=== PATIENT | female | born 1960 | race Caucasian/White ===

== ENCOUNTER → 2023-06-25 09:50 | Outpatient (BNVA) | payer OTHER, SELFPAY | PROVIDERS: Family Provider Family Medicine; PCP Nurse Practitioner Family; Visit Provider Nurse Practitioner | DX: R30.0 Dysuria (principal); R39.9 Unspecified symptoms and signs involving the genitourinary system; N39.0 Urinary tract infection, site not specified; G43.909 Migraine, unspecified, not intractable, without status migrainosus; R53.83 Other fatigue; M25.50 Pain in unspecified joint | CPT/HCPCS: 80053; 81000; 84443; 85025; 85651; 86038; 86140; 86431; 87077; 87086; 87184 ==

== ENCOUNTER → 2023-07-10 09:49 | Outpatient (BNVA) | payer OTHER, SELFPAY | PROVIDERS: Family Provider Family Medicine; PCP Nurse Practitioner; Visit Provider Nurse Practitioner | DX: Z23 Encounter for immunization (principal); N12 Tubulo-interstitial nephritis, not specified as acute or chronic; R76.8 Other specified abnormal immunological findings in serum; R21 Rash and other nonspecific skin eruption | CPT/HCPCS: 81000; 87077; 87086; 87184 ==

== ENCOUNTER → 2023-07-26 15:05 | Outpatient (BNVA) | payer OTHER, SELFPAY | PROVIDERS: Family Provider Family Medicine; PCP Nurse Practitioner; Visit Provider Nurse Practitioner | DX: N39.0 Urinary tract infection, site not specified (principal) | CPT/HCPCS: 81000; 87077; 87086; 87184 ==

== ENCOUNTER 2023-08-02 13:29 | Outpatient (CLI) | payer OTHER, SELFPAY ==
--- NOTE | 2023-08-02 13:30 | MM_ITS ---
WS: [id number] BILATERAL SCREENING DIGITAL TOMOSYNTHESIS MAMMOGRAM WITH CAD HISTORY: Z12.39 - Encounter for other screening for malignant neop... COMPARISON: 11/28/2017 and 10/25/2017 Bilateral CC and MLO views with tomosynthesis and synthetic mammography submitted. Computer aided det ection analyzed. Breast composition: There are scattered areas of fibroglandular density. No suspicious masses, microc alcifications or architectural distortion. Lobulated 5 mm mass with a central calcification in the an terior inferior LEFT breast close to the skin surface. This is probably a skin lesion. There are larry gn calcifications. IMPRESSION: MM/[place] [id number] BI-RADS: 2-Benign FOLLOW UP: 1 Year Follow-up
== END 2023-08-02 13:30 | disposition home or self-care (01) ==
LOC: MOBLMAM 13:37
PROVIDERS: PCP Nurse Practitioner; Visit Provider Nurse Practitioner
DX: Z12.31 Encounter for screening mammogram for malignant neoplasm of breast (principal)
CPT/HCPCS: 77063; 77067

== ENCOUNTER → 2023-08-10 13:39 | Outpatient (BNVA) | payer OTHER, SELFPAY | PROVIDERS: PCP Nurse Practitioner; Visit Provider Nurse Practitioner | DX: N39.0 Urinary tract infection, site not specified (principal) | CPT/HCPCS: 81000; 87086 ==

== ENCOUNTER → 2023-08-14 08:51 | Outpatient (BNVA) | payer OTHER, SELFPAY | PROVIDERS: PCP Nurse Practitioner; Visit Provider Nurse Practitioner | DX: N39.0 Urinary tract infection, site not specified (principal) | CPT/HCPCS: 87077; 87086; 87184 ==

== ENCOUNTER → 2023-08-22 10:12 | Outpatient (BNVA) | payer OTHER, SELFPAY | PROVIDERS: PCP Nurse Practitioner; Referring Provider Nurse Practitioner; Visit Provider Nurse Practitioner | DX: N39.0 Urinary tract infection, site not specified (principal) | CPT/HCPCS: 81000; 87086 ==

== ENCOUNTER → 2023-09-18 09:03 | Outpatient (BNVA) | payer OTHER, SELFPAY | PROVIDERS: PCP Nurse Practitioner; Visit Provider Nurse Practitioner | DX: N12 Tubulo-interstitial nephritis, not specified as acute or chronic; K13.0 Diseases of lips; R10.9 Unspecified abdominal pain; Z79.899 Other long term (current) drug therapy | CPT/HCPCS: 81000; 82306; 82607; 82746; 87086 ==

== ENCOUNTER 2023-09-24 14:11 | Emergency (ER) | payer OTHER, SELFPAY ==
[2023-09-24 14:21] VITALS: BP 136/78; PULSE 66; RESP 16; TEMP 36.7; O2SAT 93; BMI 39.4
[2023-09-24 14:30] LABS: Basophils % 0.3 %; Eosinophils # 0.1 10^3/uL (0.0-0.8); Eosinophils % 1.2 %; Hematocrit 39.7 % (36-47); Lymphocytes # 1.6 10^3/uL (0.8-4.8); Lymphocytes % 17.5 %; Mean Corpuscular HGB Conc 31.7 g/dL (30-55); Mean Corpuscular Hemoglobin 27.5 pg (27-33); Mean Corpuscular Volume 86.7 fl (85-98); Mean Platelet Volume 10.1 fL (7.4-10.4); Monocytes # 0.6 10^3/uL (0.2-0.9); Monocytes % 6.9 %; Neutrophils # 6.89 10^3/uL (1.8-7.7); Neutrophils % 73.8 %; Nucleated Red Blood Cells % 0 %; Platelet Count 282 10^3/cmm (157-399); Red Blood Count 4.58 10^6/uL (3.85-5.65); Red Cell Distribution Width 14.5 % (12.1-15.1); White Blood Count 9.33 10^3/uL (3.29-11.43)
[2023-09-24 14:46] LABS: Alanine Aminotransferase 26 U/L (0-33); Albumin Level 3.8 g/dL (3.5-5.2); Alkaline Phosphatase 72 U/L (35-105); Anion Gap 15.3 (5-19); Aspartate Amino Transferase 20 U/L (0-32); Blood Urea Nitrogen 18 mg/dL (8-23); Carbon Dioxide 26 mmol/L (22-29); Chloride 99 mmol/L (98-107); Globulin 3.5 g/dL (1.3-4.6); Glomerular Filtration Rate 84.5 mL/min (90-130); Glucose 104 mg/dL (65-115); Lipase 44 U/L (13-60); Osmolality Calculated 284 mOsm/kg (285-295); Potassium 4.3 mmol/L (3.5-5.1); Sodium 136 mmol/L (136-145); Total Bilirubin 0.3 mg/dL (0.15-1.2); Total Protein 7.3 g/dL (6.6-8.7)
--- NOTE | 2023-09-24 14:48 | ED_ITS ---
HPI - Abdominal Pain 2 General: Chief Complaint: Abdominal Pain Stated Complaint: abd pain Time Seen by Provider: 09/24/23 14:48 Source: patient Mode of arrival: ambulatory History of Present Illness: 63-year-old female who presents to the mergency room complaining of abdominal pain. She has a crampy-like pain says she feels like something is getting twisted out of her pulled out of her. Very nauseous but no vomiting no hematochezia melena hematemesis or coffee-ground emesis she had diarrhea with abdominal cramping intermittently for the last 3 months. She previously had a cholecystectomy denies any other surgeries. She recently was treated with Cipro for a presumed UTI. Culture done by that provider on October 16 showed mixed superficial deborah. MD elicited complaint: abdominal pain Onset (ago): day(s) Pain Consistency: constant Location: LLQ Severity: mild Quality: cramping Radiation: none Exacerbating factors: nothing Relieving factors: nothing Associated Symptoms: Reports nausea and poor appetite; Denies anorexia, belching, bloating, change in bowel habits, change in stool character, chills, coffee ground emesis, constipation, GI cramping, diarrhea, dyspepsia, dysuria, excessive flatus, fever(s), heartburn, hematochezia, hematuria, hematemesis, fecal incontinence, loose stools, melena, syncope and vomiting Review of Systems 2 Const: Denies: fever(s) or chills Card: Denies: chest pain or syncope Resp: Denies: dyspnea GI: Reports: abdominal pain and nausea; Denies: vomiting, hematemesis, coffee ground emesis, heartburn, diarrhea, constipation, bloating, GI cramping, belching, excessive flatus, fecal incontinence, change in bowel habits, change in stool character, hematochezia or melena : Denies: dysuria, urinary frequency, urinary urgency or hematuria Musc: Denies: neck pain or back pain Skin/Breast: Denies: rash PFSH ED 2 PFSH: Family History Sister Cancer lung Grandmother Cancer maternal - colon Heart disease maternal and paternal both from heart attack. Family/Other Cancer materanal aunts- brain and luekemia Stroke materanal uncle Father Chronic kidney disease (CKD) Heart disease Mother Heart disease Family history of Sjogren's disease Brother Heart disease Denies family history of Diabetes Thyroid disease Social History Smoking and tobacco/nicotine status: never used tobacco/nicotine Second hand smoke exposure: Yes Female Reproductive History: Para: 3 Spontaneous abortions: Yes Physical Exam 2 Const: GENERAL APPEARANCE: cooperative and comfortable O RIENTATION/CONSCIOUSNESS: Yes awake, Yes oriented to person, Yes oriented to place and Yes oriented to time HENMT: COMMON NORMALS: normocephalic, atraumatic and hearing grossly normal bilaterally HEAD & SCALP: normocephalic and atraumatic Resp: COMMON NORMALS: normal respiratory effort, No retractions, No use of accessory muscles and clear to auscultation bilaterally AUSCULTATION: clear to auscultation bilaterally Cardio: COMMON NORMALS: regular rate, regular rhythm and No murmurs present (Cardio) RATE: regular rate RHYTHM: regular rhythm GI: COMMON NORMALS: No hepatosplenomegaly present AUSCULTATION: Yes normoactive bowel sounds PALPATION: Yes Tenderness to palpation present (GI), No Guarding due to palpation present (GI) and Yes No hepatosplenomegaly present : COMMON NORMALS: Yes no CVA tenderness BLADDER/KIDNEY EXAM: Yes no CVA tenderness Back/Pelvis: COMMON NORMALS: no CVA tenderness Extremity: COMMON NORMALS: normal to inspection, capillary refill normal, no clubbing, cyanosis or edema, no calf tenderness and no pedal edema Neuro: SENSORIUM/ORIENTATION: Yes oriented to person, Yes oriented to place and Yes oriented to time Skin: COMMON NORMALS: no rashes or lesions noted GENERAL SKIN EXAM: no rashes or lesions noted Course 2 Vital Signs: Vital signs: Vital Signs Temperature 98.1 F 09/24/23 14:21 Pulse Rate 64 09/24/23 16:01 Respiratory Rate 16 09/24/23 16:01 Blood Pressure 128/86 09/24/23 15:06 Pulse Oximetry 96 09/24/23 16:01 Oxygen Delivery Me thod Room Air 09/24/23 16:01 MDM - Abdominal Pain Medical Decision Making Patient is completing a course of ciprofloxacin presumably for UTI however UA was negative culture was also negative now she has developed abdominal pain and cramping and diarrhea she is also been on doxycycline and Macrobid in the past and reviewing the chart looks like she has been given IM injections of ceftriaxone. She has had a couple of cultures that were positive. Suspect the patient may have interstitial cystitis she does have a urology appointment pending. At today's visit she has no sign of UTI despite her complaints of symptoms. Another consideration is she may have C. difficile she has had intermittent diarrhea especially given the amount of antibiotic she has been on recently she is at fairly good risk for this. Do not recommend any further antibiotics at this point. She definitely does not need to see urology and be further assessed. CT of her abdomen pelvis was negative lab work otherwise unremarkable will get stool sample for C. difficile PCR. Medical Records I reviewed the patient's medical records. Lab Data I reviewed the patient's lab results. 09/24/23 14:19 09/24/23 14:19 Labs/Radiology: Radiology Impressions Abdomen/Pelvis CT 09/24/23 16:01 IMPRESSION: No acute findings. Laboratory Results WBC 9.33 10^3/uL (3.29-11.43) 09/24/23 14:19 RBC 4.58 10^6/uL (3.85-5.65) 09/24/23 14:19 Hgb 12.60 g/dL (11.27-16.99) 09/24/23 14:19 Hct 39.7 % (36-47) 09/24/23 14:19 MCV 86.7 fl (85-98) 09/24/23 14:19 MCH 27.5 pg (27-33) 09/24/23 14:19 MCHC 31.7 g/dL (30-55) 09/24/23 14:19 RDW 14.5 % (12.1-15.1) 09/24/23 14:19 Plt Count 282 10^3/cmm (157-399) 09/24/23 14:19 MPV 10.1 fL (7.4-10.4) 09/24/23 14:19 Neut % (Auto) 73.8 % 09/24/23 14:19 Lymph % (Auto) 17.5 % 09/24/23 14:19 Lyman % (Auto) 6.9 % 09/24/23 14:19 Eos % (Auto) 1.2 % 09/24/23 14:19 Baso % (Auto) 0.3 % 09/24/23 14:19 Neut # (Auto) 6.89 10^3/uL (1.8-7.7) 09/24/23 14:19 Lymph # (Auto) 1.6 10^3/uL (0.8-4.8) 09/24/23 14:19 Lyman # (Auto) 0.6 10^3/uL (0.2-0.9) 09/24/23 14:19 Eos # (Auto) 0.1 10^3/uL (0.0-0.8) 09/24/23 14:19 Baso # (Auto) 0.0 10^3/uL (0.0-0.1) 09/24/23 14:19 Nucleated RBC % (auto) 0 % 09/24/23 14:19 Nucleated RBCs # 0.0 /100WBC 09/24/23 14:19 Sodium 136 mmol/L (136-145) 09/24/23 14:19 Potassium 4.3 mmol/L (3.5-5.1) 09/24/23 14:19 Chloride 99 mmol/L (98-107) 09/24/23 14:19 Carbon Dioxide 26 mmol/L (22-29) 09/24/23 14:19 Anion Gap 15.3 (5-19) 09/24/23 14:19 BUN 18 mg/dL (8-23) 09/24/23 14:19 Creatinine 0.7 mg/dL (0.5-0.9) 09/24/23 14:19 GFR Calculation 84.5 mL/min (90-130) L 09/24/23 14:19 Glucose 104 mg/dL (65-115) 09/24/23 14:19 Calculated Osmolality 284 mOsm/kg (285-295) L 09/24/23 14:19 Calcium 9.0 mg/dL (8.5-10.5) 09/24/23 14:19 Total Bilirubin 0.3 mg/dL (0.15-1.2) 09/24/23 14:19 AST 20 U/L (0-32) 09/24/23 14:19 ALT 26 U/L (0-33) 09/24/23 14:19 Alkaline Phosphatase 72 U/L (35-105) 09/24/23 14:19 Total Protein 7.3 g/dL (6.6-8.7) 09/24/23 14:19 Albumin 3.8 g/dL (3.5-5.2) 09/24/23 14:19 Globulin 3.5 g/dL (1.3-4.6) 09/24/23 14:19 Lipase 44 U/L (13-60) 09/24/23 14:19 Urine Color Yellow (Yellow) 09/24/23 15:26 Urine Appearance Clear (CLEAR) 09/24/23 15:26 Urine pH 6.5 (5-7) 09/24/23 15:26 Ur Specific [place] 1.005 (1.005-1.030) 09/24/23 15:26 Urine Protein Neg (Negative) 09/24/23 15:26 Urine Glucose (UA) Norm (Normal) 09/24/23 15:26 Urine Ketones Negative (Negative) 09/24/23 15:26 Urine Blood Neg (Negative) 09/24/23 15:26 Urine Nitrate Negative (Negative) 09/24/23 15:26 Urine Bilirubin Neg (Negative) 09/24/23 15:26 Urine Urobilinogen Norm mg/dL (Negative) 09/24/23 15:26 Ur Leukocyte Esterase Negative (Negative) 09/24/23 15:26 All radiology interpretation(s) finalized by discharge Discharge Plan Discharge Condition: Stable Prescriptions: No Action propranolol 40 mg tablet 40 mg PO BID citalopram 40 mg tablet 40 mg PO BEDTIME albuterol sulfate 90 mcg/actuation HFA aerosol inhaler 2 puff inhalation QID PRN (Reason: Shortness Of Breath) azelastine 137 mcg (0.1 %) aerosol,spray 2 spray intranasal BID PRN (Reason: unknown) Rx Instructions: administer into each nostril fluticasone propionate [Flonase Allergy Relief] 50 mcg/actuation spray,suspension 2 spray intranasal DAILY PRN (Reason: Allergy Symptoms) Rx Instructions: administer into each nostril omeprazole magnesium [Prilosec OTC] 20 mg tablet,delayed release (DR/EC) 20 mg PO DAILY naproxen sodium [Aleve] 220 mg capsule See Rx Instructions .ROUTE .COMPLEX Rx Instructions: 440mg po in the am and 660mg po bedtime ICaps AREDS 4,296 mcg-226 mg-90 mg capsule 1 cap PO BID glucosamine-chondroitin 750-600 mg tablet 1 tab PO DAILY melatonin 3 mg capsule 3 mg PO BEDTIME PRN (Reason: Sleep) Breztri Aerosphere 160-9-4.8 mcg/actuation HFA aerosol inhaler 2 inh inhalation BID ciprofloxacin HCl 500 mg tablet 500 mg PO BID Qty: 14 0RF Rx Instructions: for 7 days (rx filled 09/18/23) Allergy Relief (cetirizine) 10 mg tablet 10 mg PO BEDTIME ferrous sulfate 325 mg (65 mg iron) Tablet 325 mg PO BEDTIME Vitamin B-12 1,000 mcg Tablet 1,000 mcg PO BEDTIME Vitamin D3 25 mcg (1,000 unit) Tablet 25 mcg PO BEDTIME AZO Urinary Tract Defense 162-162.5 mg Tablet 1 tab PO BID Cranberry Gummies 1 tab PO BEDTIME Aimovig Autoinjector 140 mg/mL auto-injector 140 mg SUBCUT Q30D Referrals: Glo Brandon FNP [Primary Care Provider] - Coding Level of Care Code ED Hand Grinder for Miguel Clarke
[2023-09-24 15:06] VITALS: BP 128/86; PULSE 63; O2SAT 97
[2023-09-24 15:42] LABS: Add Urine Microscopic? NO; Charge for UA Resulting for Rev
[2023-09-24 15:50] LABS: Bilirubin Urine Neg (Negative); Blood Urine Neg (Negative); Glucose Urine UA Norm (Normal); Ketones Urine Negative (Negative); Leukocyte Esterase Urine Negative (Negative); Nitrate Urine Negative (Negative); Protein Urine Neg (Negative); Specific Gravity, Urine 1.005 (1.005-1.030); Urine Appearance Clear (CLEAR); Urine Color Yellow (Yellow); Urobilinogen Urine Norm (Negative); pH Urine 6.5 (5-7)
[2023-09-24 16:01] VITALS: PULSE 64; RESP 16; O2SAT 96
--- NOTE | 2023-09-24 16:01 | CTR_ITS ---
PROCEDURE INFORMATION: Exam: CT Abdomen And Pelvis Without Contrast Exam date and time: 09/24/2023 4:38 PM Age: 63 years old Clinical indication: Abdominal pain; Prior surgery; Surgery date: 6+ months; Surgery type: Josiane TECHNIQUE: Imaging protocol: Computed tomography of the abdomen and pelvis without contrast. Radiation optimization: All CT scans at this facility use at least one of these dose optimization techniques: automated exposure control; mA and/or kV adjustment per patient size (includes targeted exams where dose is matched to clinical indication); or iterative reconstruction. COMPARISON: No relevant prior studies available. RADIATION DOSE METRICS: Total DLP (mGy-cm): 1120.63 FINDINGS: Lungs: Lung bases are clear. No pleural effusion. Liver: Normal. No mass. Gallbladder and bile ducts: Normal. No calcified stones. No ductal dilation. Pancreas: Normal. No ductal dilation. Spleen: Normal. No splenomegaly. Adrenal glands: Normal. No mass. Kidneys and ureters: Normal. No hydronephrosis. Stomach and bowel: Unremarkable. No obstruction. No mucosal thickening. Appendix: No evidence of appendicitis. Intraperitoneal space: Unremarkable. No free air. No significant fluid collection. Vasculature: Unremarkable. No abdominal aortic aneurysm. Lymph nodes: Unremarkable. No enlarged lymph nodes. Urinary bladder: Unremarkable as visualized. Reproductive: Unremarkable as visualized. Bones/joints: Unremarkable. No acute fracture. Soft tissues: Unremarkable. CT/CT abdomen pelvis con [id number] IMPRESSION: No acute findings.
[2023-09-24 17:23] VITALS: BP 120/50; PULSE 64; RESP 16; TEMP 36.7; O2SAT 97
== END 2023-09-24 17:25 | disposition home or self-care (01) ==
PROVIDERS: Emergency Medicine; Emergency Provider Family Medicine; PCP Nurse Practitioner
DX: R10.32 Left lower quadrant pain (principal)
CPT/HCPCS: 36415; 74176; 80053; 81003; 83690; 85025; 99284

== ENCOUNTER → 2023-10-15 10:20 | Outpatient (BNVA) | payer OTHER, SELFPAY | PROVIDERS: PCP Nurse Practitioner; Visit Provider Obstetrics & Gynecology | DX: N81.4 Uterovaginal prolapse, unspecified (principal) | CPT/HCPCS: 76830 ==

== ENCOUNTER → 2024-01-03 11:21 | Outpatient (BNVA) | payer OTHER, SELFPAY | PROVIDERS: PCP Nurse Practitioner; Visit Provider Internal Medicine Rheumatology | DX: Z79.899 Other long term (current) drug therapy (principal); M45.6 Ankylosing spondylitis lumbar region; R76.8 Other specified abnormal immunological findings in serum; Z11.59 Encounter for screening for other viral diseases; Z11.1 Encounter for screening for respiratory tuberculosis; M47.897 Other spondylosis, lumbosacral region; M18.11 Unilateral primary osteoarthritis of first carpometacarpal joint, right hand; M47.892 Other spondylosis, cervical region | CPT/HCPCS: 36415; 72040; 72100; 73130; 73630; 80076; 82306; 82565; 85025; 85651; 86140; 86160; 86162; 86235; 86255; 86376; 86480; 86704; 86800; 86803; 86812; 87340 ==

== ENCOUNTER 2024-01-29 09:35 | Observation (INO) | payer OTHER, SELFPAY ==
--- NOTE | 2024-01-21 11:23 | P.ANESASSM_ITS ---
Pre-Anesthetic Assessment Height/Weight: Height 1.63 m Operation Date: 01/29/24 08:35 Proposed Procedures p Total Vaginal Hysterectomy 41265, 30438, 81241, N81.4, N39.46(Not Applicable) - Ever Gregg MD s Salpingo-Oophorectomy (Vaginal)(Bilateral) - Ever Gregg MD s Anterior Repair Anterior Colporrhaphy(Not Applicable) - Ever Gregg MD s Sling(Not Applicable) - Ever Gregg MD Familial anesthetic complications: None Was Beta Tanner taken within 24 hours: N/A Was Clonidine taken within 24 hours: N/A Social No alcohol and No tobacco Exam alert, oriented x 3, clear to auscultation bilaterally and regular rate & rhythm Airway Mallampati: Class II Dentition: other (no teeth) Pulmonary Asthma Musc/skel Rheumatoid Arthritis Anesthetic Plan ASA status: 2 Anesthesia: General Risk of > 500 ml blood loss (7ml/kg in children): No Medications/Allergies Home Medications Medication Instructions Recorded Confirmed Last Taken Type albuterol sulfate 90 mcg/actuation 2 puff inhalation QID PRN 06/23/23 01/21/24 01/12/24 History aerosol inhaler Shortness Of Breath citalopram 40 mg tablet 40 mg PO BEDTIME 06/23/23 01/21/24 01/20/24 History azelastine 137 mcg (0.1 %) nasal 2 spray intranasal BID PRN unknown 06/25/23 01/21/24 Unknown History spray aerosol budesonide 160 mcg-glycopyr 9 2 inh inhalation BID 06/25/23 01/21/24 01/21/24 History mcg-formot 4.8 mcg/actuation HFA inhaler (Breztri Aerosphere) fluticasone propionate 50 2 spray intranasal DAILY PRN 06/25/23 01/21/24 Unknown History mcg/actuation nasal Allergy Symptoms spray,suspension (Flonase Allergy Relief) melatonin 3 mg capsule 3 mg PO BEDTIME PRN Sleep 06/25/23 01/21/24 01/20/24 History naproxen sodium 220 mg capsule See Rx Instructions .Route .COMPLEX 06/25/23 01/21/24 01/21/24 History (Aleve) omeprazole magnesium 20 mg 20 mg PO DAILY 06/25/23 01/21/24 01/21/24 History tablet,delayed release (Prilosec OTC) vitamins A,C,P-iyhz-olpojc 4,296 1 cap PO BID 06/25/23 01/21/24 01/21/24 History mcg-226 mg-90 mg capsule (ICaps AREDS) Cranberry Gummies 1 tab PO BEDTIME 09/24/23 01/21/24 01/20/24 History cetirizine 10 mg tablet (Allergy 10 mg PO BEDTIME 09/24/23 01/21/24 01/20/24 History Relief (cetirizine)) cholecalciferol (vitamin D3) 25 25 mcg PO BEDTIME 09/24/23 01/21/24 01/20/24 History mcg (1,000 unit) tablet (Vitamin D3) cyanocobalamin (vitamin B-12) 1,000 mcg PO QAM 09/24/23 01/21/24 01/21/24 History 1,000 mcg tablet (Vitamin B-12) ferrous sulfate 325 mg (65 mg 325 mg PO BEDTIME 09/24/23 01/21/24 01/20/24 History iron) tablet leflunomide 20 mg tablet 20 mg PO DAILY #30 tabs 01/03/24 01/21/24 01/20/24 Rx prednisone 20 mg tablet See Rx Instructions PO .COMPLEX 01/03/24 01/21/24 01/21/24 Rx PRN joint pain flare #30 tabs Allergies Allergy/AdvReac Type Severity Reaction Status Date / Time No Known Allergies Allergy Verified 01/21/24 08:42 [facility] Anesthesia Medical History Immunization counseling High risk medication use Inflammatory arthritis Positive HAILEY (antinuclear antibody) Surgical History History of knee replacement procedure of left knee December 2022 History of cholecystectomy Family History Sister Cancer lung Grandmother Cancer maternal - colon Heart disease maternal and paternal both from heart attack. Family/Other Cancer materanal aunts- brain and luekemia Stroke materanal uncle Father Chronic kidney disease (CKD) Heart disease Mother Heart disease Family history of Sjogren's disease Brother Heart disease Denies family history of Diabetes Thyroid disease Social History Smoking and tobacco/nicotine status: never used tobacco/nicotine Second hand smoke exposure: Yes Female Reproductive History Para: 3 Spontaneous abortions: Yes Data Anesthesia Cardiac Studies: No Data to Display
[2024-01-29] VITALS (18 sets, daily range): BP systolic 117–155; BP diastolic 63–90; PULSE 76–100; RESP 15–20; TEMP 36.4–37.3; O2SAT 92–96; BMI 39.4
[2024-01-29] MEDS: enoxaparin 30 mg/0.3 mL Syringe SUBCUT (06:25)
[2024-01-29] MEDS: scopolamine 1.5 Patch 1 PATCH TRANSDERMA (06:25)
[2024-01-29] MEDS: sodium chloride 0.9% 1,000 ML 30 ML IV (06:28)
[2024-01-29] MEDS: sodium chloride 0.9% 500 ML IV (06:28)
[2024-01-29] MEDS: ceFAZolin 3,000 MG in sodium chloride 0.9% (100 ml) 100 ML 200 MG IV (06:36)
[2024-01-29 06:57] LABS: Basophils % 0.4 %; Eosinophils # 0.1 10^3/uL (0.0-0.8); Hematocrit 40.6 % (36-47); Lymphocytes # 1.8 10^3/uL (0.8-4.8); Lymphocytes % 23.5 %; Mean Corpuscular HGB Conc 32.3 g/dL (30-55); Mean Corpuscular Hemoglobin 27.6 pg (27-33); Mean Corpuscular Volume 85.5 fl (85-98); Monocytes # 0.7 10^3/uL (0.2-0.9); Monocytes % 8.5 %; Neutrophils # 5.15 10^3/uL (1.8-7.7); Neutrophils % 66.2 %; Nucleated Red Blood Cells % 0 %; Platelet Count 184 10^3/cmm (157-399); Red Blood Count 4.75 10^6/uL (3.85-5.65); Red Cell Distribution Width 15.8 % (12.1-15.1); White Blood Count 7.78 10^3/uL (3.29-11.43)
--- NOTE | 2024-01-29 07:02 | W.PM.OPSUD ---
Surgery/Procedure H&P Update DATE OF PROCEDURE: January 29, 2024 DATE H&P PERFORMED: 01/21/24 H&P UPDATE INFORMATION: I have reviewed H&P completed within last 30 days, I have examined patient prior to procedure and No changes to prior documentation PREOP DIAGNOSIS: Pelvic pain, uterine prolapse, cystocele, rectocele, mixed urinary incontin PLANNED PROCEDURE: Operation Date: 01/29/24 07:00 Proposed Procedures p Total Vaginal Hysterectomy 88778, 39376, 87144, N81.4, N39.46(Not Applicable) - Ever Gregg MD s Salpingo-Oophorectomy (Vaginal)(Bilateral) - MD amelie Weiss Anterior Repair Anterior Colporrhaphy(Not Applicable) - Ever Gregg MD s Sling(Not Applicable) - Ever Gregg MD
[2024-01-29 07:06] LABS: Add Urine Microscopic? YES; Bilirubin Urine Neg (Negative); Blood Urine Neg (Negative); Glucose Urine UA Norm (Normal); Ketones Urine Negative (Negative); Leukocyte Esterase Urine Trace (Negative); Nitrate Urine Positive (Negative); Protein Urine Trace (Negative); RBC Urine 0-4 /hpf (0-2); Urine Appearance Cloudy (CLEAR); Urine Color Yellow (Yellow); Urobilinogen Urine 1 mg/dL (Negative); WBC Urine 15-25 /hpf (0-5); pH Urine 5 (5-7)
[2024-01-29 07:07] LABS: Add Urine Culture? Yes; Bacteria Urine 2+ /hpf; Calcium Oxalate Crystals Urine 0-4 /hpf; Mucus Urine 2+ /hpf
--- NOTE | 2024-01-29 07:52 | P.ANESUD_ITS ---
Pre-Anesthetic Update Pre-Anesthetic Assessment: Date of Surgery/Procedure: 01/29/24 Preop Joyce gnosis: Pelvic pain, uterine prolapse, cystocele, rectocele, mixed urinary incontin Proposed Procedure: Operation Date: 01/29/24 07:00 Proposed Procedures p Total Vaginal Hysterectomy 55477, 72513, 16213, N81.4, N39.46(Not Applicable) - Ever Gregg MD s Salpingo-Oophorectomy (Vaginal)(Bilateral) - Ever Gregg MD s Anterior Repair Anterior Colporrhaphy(Not Applicable) - MD amelie Weiss Sling(Not Applicable) - Ever Gregg MD Any changes to Pre-Anesthetic Assessment?: No Last Intake: Intake Last Liquid Date 01/28/24 Last Liquid Time 23:30 Last Solid Date 01/28/24 Last Solid Time 22:30 Labs Last 48hrs: Short CBC 01/29/24 Range/Units 06:30 WBC 7.78 (3.29-11.43) 10^ 3/uL Hgb 13.10 (11.27-16.99) g/ dL Hct 40.6 (36-47) % MCV 85.5 (85-98) fl Plt Count 184 (157-399) 10^3/c mm Neut % (Auto) 66.2 % Neut # (Auto) 5.15 (1.8-7.7) 10^3/u L BMP 01/29/24 06:30 Sodium Cancelled Potassium Cancelled Chloride Cancelled Carbon Dioxide Cancelled BUN Cancelled Creatinine Cancelled Glucose Cancelled Calcium Cancelled Liver Function 01/29/24 Range/Units 06:30 Total Bilirubin Cancelled AST Cancelled ALT Cancelled Alkaline Phosphata se Cancelled Albumin Cancelled Urine 01/29/24 Range/Units 06:15 Urine Color Yellow (Yellow) Urine Appearance Cloudy A (CLEAR) Urine pH 5 (5-7) Ur Specific Gravit y 1.030 (1.005-1.030) Urine Protein Trace (Negative) Urine Glucose (UA) Norm (Normal) Urine Ketones Negative (Negative) Urine Nitrate Positive A (Negative) Urine Bilirubin Neg (Negative) Ur Leukocyte Clara ase Trace H (Negative) Urine RBC 0-4 H (0-2) /hpf Urine WBC 15-25 H (0-5) /hpf Vitals: Temperature 97.9 F 01/29/24 06:08 Temperature Source Temporal Artery S can 01/29/24 06:08 Pulse Rate 77 01/29/24 06:08 Pulse Rhythm Regular 01/29/24 06:10 Pulse Strength 3+ Normal 01/29/24 06:10 Respiratory Rate 18 01/29/24 06:08 Blood Pressure 150/82 01/29/24 06:08 Blood Pressure Mehnaz n 104 01/29/24 06:08 Pulse Oximetry 95 01/29/24 06:08 Oxygen Delivery Me thod Room Air 01/29/24 06:10 Exam: Pre-Anes Outpt Exam: alert, oriented x 3, clear to auscultation bilaterally and regular rate & rhythm Cardiac Studies: No Data to Display
[2024-01-29 08:01] LABS: Alanine Aminotransferase 25 U/L (0-33); Albumin Level 3.5 g/dL (3.5-5.2); Alkaline Phosphatase 44 U/L (35-105); Anion Gap 14.6 (5-19); Aspartate Amino Transferase 16 U/L (0-32); Blood Urea Nitrogen 24 mg/dL (8-23); Calcium 8.3 mg/dL (8.5-10.5); Carbon Dioxide 27 mmol/L (22-29); Chloride 104 mmol/L (98-107); Globulin 2.4 g/dL (1.3-4.6); Glomerular Filtration Rate 84.5 mL/min (90-130); Glucose 95 mg/dL (65-115); Osmolality Calculated 298 mOsm/kg (285-295); Potassium 3.6 mmol/L (3.5-5.1); Sodium 142 mmol/L (136-145); Total Bilirubin 0.2 mg/dL (0.15-1.2); Total Protein 5.9 g/dL (6.6-8.7)
[2024-01-29] MEDS: lidocaine-epi 2% PF 1:200,000 20 mL SDV INJECTION (08:28)
--- NOTE | 2024-01-29 09:16 | P.OP_ITS ---
Operative Report Date of procedure: January 29, 2024 Pre-op diagnosis: Pelvic pain, uterine prolapse, cystocele, rectocele, mixed urinary incontinence Post-op diagnosis: same Procedure done: Total vaginal hysterectomy with right salpingo-oophorectomy Anterior colporrhaphy augmented with allograft Mid urethral sling Cystoscopy Implants: Coloplast Altis sling Coloplast dermis allograft Specimens removed/disposition: Uterus Right fallopian tube and ovary Surgeon: Ever Gregg MD Estimated blood loss (mL): 150 IV fluids (mL): 700 Urine output (mL): 100 Complications: None Procedure: After informed consent and risks, benefits, indications and alternatives reviewed with the patient was taken to the operating room. The patient was placed in dorsal lithotomy position prepped, and draped in the usual sterile fashion. The pre-procedure timeout verifying the correct patient, procedure, site and side, could not requirements was performed and acknowledge by the OR team. A Moy catheter was placed. A Bookwalter vaginal retractor was placed into the vagina in usual manner visualize the cervix. Cervix was grasped with a single tooth tenaculum and circumferentially infiltrated with 2% lidocaine with epinephrine. Then cervix was circumferentially incised with bovie and the bladder was dissected off the pubovesical cervical fascia anteriorly with a sponge stick and Metzenbaum scissors. The anterior peritoneal reflection was identified and the anterior cul-de-sac was entered sharply with Metzenbaum scissors. The same procedure was performed posteriorly and a posterior colpotomy was made through the posterior cul-de-sac space without difficulty and the posterior blade of the Bookwalter vaginal retractor was advanced posteriorly into the cul-de-sac. At this time, the left and right uterosacral ligaments were isolated and ligated with 0 Vicryl. The LigaSure device was placed over the uterosacral ligaments on either side and was then used in a serial fashion up through the cardinal ligaments bilaterally cross-clamped, cut, and sealed with the LigaSure device. Finally, the uterine arteries were cross-clamped, cut, sealed and ligated with the LigaSure device. Hemostasis was assured. The broad ligaments were then serially clamped, sealed and cut with the LigaSure device on both sides. Excellent hemostasis was visualized. Both cornua were clamped, sealed and cut with the LigaSure device. Then the pedicles were then suture ligated with excellent hemostasis. The ut erus was excised and submitted for pathologic evaluation. No other abnormalities were noted in the pelvic cavity. Then the right side Infundibular ligament was identified. The ureter was confirmed along the pelvic side wall and peristalsis was noted. The LigaSure device was then used to clamp, sealed and transcepted at middistance, again being sure to be clear of the ureter and the fallopian tube and ovary was removed. The left side fallopian tube and ovary could not be safely identify and was not able to remove. The peritoneum was then closed in a pursestring fashion with 0 Vicryl suture. The vaginal cuff angles were closed with [id number] #0 Vicryl suture on both sides and transfixed with the ipsilateral cardinal and uterosacral ligaments. The remainder of the vaginal cuff was closed with #0 Vicryl in a running locked fashion. A vertical midline incision was made beneath the midurethra, nearly 1.5 cm length. Careful submucosal dissection was performed bilaterally up to the interior portion of the inferior pubic ramus. The insertion of adductor longus tendon on the patient?s pubic ramus was identified as reference land paulette. Palpated the notch along the internal edge of ischiopubic ramus where the adductor longus tendon and the inferior pubic ramus meet. The Altis single incision sling (SIS) was selected. Then the needle of the SIS inserted aiming at the location of this notch. One of the integrated self-fixating tips place onto the needle by sliding it over the end of the needle. The needle/sling assembly was inserted toward the location of identified reference notch making sure that the flat of the handle is perpendicular to the desired path. The needle was tracked along the posterior surface of the ischiopubic ramus until the midline paulette on the mesh is approximately at the midline position under the urethra. The needle was removed and the same was repeated on the contralateral side until the appropriate sling tension under the urethra was achieved ensuring that the mesh lays flat. The needle was removed and vaginal incision was closed in a running interlocking fashion with 2-0 Vicryl. The vaginal mucosa was then injected in the midline with normal saline. The vaginal mucosa was scored in the midline with the Bovie approximately 1 cm medial to the urethral meatus to 1 cm distal to the vaginal cuff. This vaginal mucosa was then undermined and then incised in the midline with the Metzenbaum scissors. The lateral aspects of the vaginal mucosa were then grasped with the Allis clamps and the vaginal mucosa was then dissected off the underlying fascia with the Metzenbaum scissors. Again, there was noted to be quite a bit of oozing at the incision, which was controlled with cautery. After adequate dissection was performed, bilaterally. An Coloplast dermis allograft modified at time of application to fit spacea, 3 x 3 cm piece . The allograft placed in front of cystocele ready to be implanted facing the vagina mucosa. Suture is placed at distal end of graft and placed towards vaginal cuff. Final suture is placed on proximal portion of the graft to complete the placement overlying the bladder. Then Interrupted vertical mattress sutures of 0 Vicryl were used to elevate the cystocele superiorly. The excessive vaginal mucosa was then trimmed with the Metzenbaum scissors and the vaginal mucosa was then reapproximated in the running interlocking fashion with 2-0 Vicryl. Bludigo was given IV. At this time, instruments were removed from the vagina at hemostasis assured. Then the Moy catheter was removed and cystoscope was inserted. The bladder was filled with sterile water. Complete evaluation of the bladder mucosa was performed noting no lacerations, dimpling, tears, bleeding of the mucosa or muscular layers. Both ureteral orifices were identified. Prompt excretion of urine from both ureteral orifices was noted. Cystoscope was withdrawn. Moy catheter was then placed yielding clear blue urine. A vaginal packing with Premarin cream was placed and the patient was taken out of dorsal lithotomy position and awakened from the general anesthesia. The patient tolerated the procedure well and was taken to the PACU recovery room in a stable condition. Sponge, lap, needle and instruments counts were correct x3.
[2024-01-29] MEDS: HYDROcodone-acetaminophen 5-325 mg Tablet PO (11:07)
[2024-01-29] MEDS: dextrose 5%-lactated ringers 1,000 ML 125 ML IV ×2 (13:15→22:28)
--- NOTE | 2024-01-29 14:03 | ANE.PACU2 ---
Inpatient post-anesthesia follow up: Airway intact: Yes Vital signs: Temperature 97.5 F Pulse Rate 79 Respiratory Rate 16 Blood Pressure 130/72 Pulse Oximetry 95 Oxygen Delivery Me thod Nasal Cannula Oxygen Flow Rate 2 Fraction of Inspir ed Oxygen Hydration adequate: Yes Nausea and vomiting: No Pain level: 3 Mental status: Baseline
[2024-01-29] MEDS: ketorolac 30 mg/mL INJ IVP ×2 (16:12→22:30)
[2024-01-29] MEDS: docusate sodium 100 mg Capsule PO (17:55)
[2024-01-29] MEDS: cholecalciferol (vitamin D3) 1,000 unit Tablet 1000 UNIT PO (20:51)
[2024-01-29] MEDS: ferrous sulfate EC 325 mg Tablet PO (20:51)
[2024-01-29] MEDS: cetirizine 10 mg Tablet PO (20:52)
[2024-01-30 05:41] LABS: Hematocrit 33.1 % (36-47); Mean Corpuscular HGB Conc 30.8 g/dL (30-55); Mean Corpuscular Hemoglobin 27.3 pg (27-33); Mean Corpuscular Volume 88.7 fl (85-98); Mean Platelet Volume 10.4 fL (7.4-10.4); Platelet Count 153 10^3/cmm (157-399); Red Blood Count 3.73 10^6/uL (3.85-5.65); Red Cell Distribution Width 16.2 % (12.1-15.1); White Blood Count 7.76 10^3/uL (3.29-11.43)
[2024-01-30] MEDS: ketorolac 30 mg/mL INJ IVP (05:58)
[2024-01-30 06:01] VITALS: BP 131/66; PULSE 66; RESP 18; TEMP 37.1; O2SAT 95
[2024-01-30] MEDS: ibuprofen 800 mg tablet PO (08:39)
[2024-01-30] MEDS: cyanocobalamin 1,000 mcg Tablet 1000 MCG PO (08:39)
[2024-01-30] MEDS: docusate sodium 100 mg Capsule PO (08:39)
[2024-01-30] MEDS: pantoprazole DR 40 mg Tablet PO (08:39)
--- NOTE | 2024-01-30 10:22 | PM.OBGYDC ---
Discharge Providers GOGGLES ASSEMBLER Date of Admission: 01/29/24 09:35 Date of Discharge: 01/30/24 Attending Provider at Admission: Ever Gregg MD Attending Provider at Discharge: Ever Gregg MD Primary Care Provider: Glo Brandon APN Reason for Visit Reason for Visit: N39.46 Hospital Course Hospital Course Mrs. Martin 62-year-old female with a history of pelvic pain, uterine prolapse, cystocele, mixed incontinence. Admitted for planned total vaginal hysterectomy with bilateral salpingo-oophorectomy, anterior colporrhaphy and mid urethral sling. A total vaginal hysterectomy with right salpingo-oophorectomy was performed, left ovary could not be identified to be safely removed, an anterior colporrhaphy augmented with allograft and mid urethral sling were performed without complication. Overnight observation was uneventful. She is afebrile hemodynamically stable postoperative day 1. Ambulating without difficulty. Tolerating diet well. Pain well under control. She was counseled regarding pelvic rest for 6 weeks (no sex, no tampons, no vaginal douches). Return to the emergency room if any fever, increased bleeding or pain. She was also counseled regarding weight lifting limitations to 10 pounds for the next 6 weeks. Physical Exam Narrative: GA: Alert and oriented ?3. HEENT: WNL. Heart: Regular rate and rhythm. Lungs: Clear to auscultation bilaterally. Abdomen: Bowel sounds present, nontender. SALES SUPPORT SPECIALIST: No bleeding. Extremities: No edema, no cyanosis, no calves pain. Urinary Catheter Management: Moy: Cath Placed During This Visit: yes, but has since been removed by the nurse Reason for Continuing Indwelling Catheter: Decision to DC Catheter Urinary Catheter Date of Insertion: 01/29/24 Urinary Catheter Time of Insertion: 07:38 Date Urinary Catheter Removed: 01/30/24 Time Urinary Catheter Discontinued: 05:30 History History History 4 Term 3 0 Miscarriages/Ectopic 1 Living Children 3 Discharge Data Studies Completed and Pending Pending at discharge Category Date Time Status Urine Culture Routine Lab 01/29/24 06:15 Results Pathology: Surgical [PTH] Routine Pth 01/29/24 08:16 Received Laboratory Results WBC 7.76 10^3/uL (3.29-11.43) 01/30/24 05:30 RBC 3.73 10^6/uL (3.85-5.65) L 01/30/24 05:30 Hgb 10.20 g/dL (11.27-16.99) L 01/30/24 05:30 Hct 33.1 % (36-47) L 01/30/24 05:30 MCV 88.7 fl (85-98) 01/30/24 05:30 MCH 27.3 pg (27-33) 01/30/24 05:30 MCHC 30.8 g/dL (30-55) 01/30/24 05:30 RDW 16.2 % (12.1-15.1) H 01/30/24 05:30 Plt Count 153 10^3/cmm (157-399) L 01/30/24 05:30 MPV 10.4 fL (7.4-10.4) 01/30/24 05:30 Neut % (Auto) 66.2 % 01/29/24 06:30 Lymph % (Auto) 23.5 % 01/29/24 06:30 [place] % (Auto) 8.5 % 01/29/24 06:30 Eos % (Auto) 1.0 % 01/29/24 06:30 Baso % (Auto) 0.4 % 01/29/24 06:30 Neut # (Auto) 5.15 10^3/uL (1.8-7.7) 01/29/24 06:30 Lymph # (Auto) 1.8 10^3/uL (0.8-4.8) 01/29/24 06:30 [place] # (Auto) 0.7 10^3/uL (0.2-0.9) 01/29/24 06:30 Eos # (Auto) 0.1 10^3/uL (0.0-0.8) 01/29/24 06:30 Baso # (Auto) 0.0 10^3/uL (0.0-0.1) 01/29/24 06:30 Nucleated RBC % (auto) 0 % 01/29/24 06:30 Nucleated RBCs # 0.0 /100WBC 01/29/24 06:30 Sodium 142 mmol/L (136-145) 01/29/24 07:24 Potassium 3.6 mmol/L (3.5-5.1) 01/29/24 07:24 Chloride 104 mmol/L (98-107) 01/29/24 07:24 Carbon Dioxide 27 mmol/L (22-29) 01/29/24 07:24 Anion Gap 14.6 (5-19) 01/29/24 07:24 BUN 24 mg/dL (8-23) H 01/29/24 07:24 Creatinine 0.7 mg/dL (0.5-0.9) 01/29/24 07:24 GFR Calculation 84.5 mL/min (90-130) L 01/29/24 07:24 Glucose 95 mg/dL (65-115) 01/29/24 07:24 Calculated Osmolality 298 mOsm/kg (285-295) H 01/29/24 07:24 Calcium 8.3 mg/dL (8.5-10.5) L 01/29/24 07:24 Total Bilirubin 0.2 mg/dL (0.15-1.2) 01/29/24 07:24 AST 16 U/L (0-32) 01/29/24 07:24 ALT 25 U/L (0-33) 01/29/24 07:24 Alkaline Phosphatase 44 U/L (35-105) 01/29/24 07:24 Total Protein 5.9 g/dL (6.6-8.7) L 01/29/24 07:24 Albumin 3.5 g/dL (3.5-5.2) 01/29/24 07:24 Globulin 2.4 g/dL (1.3-4.6) 01/29/24 07:24 Urine Color Yellow (Yellow) 01/29/24 06:15 Urine Appearance Cloudy (CLEAR) A 01/29/24 06:15 Urine pH 5 (5-7) 01/29/24 06:15 Ur Specific [place] 1.030 (1.005-1.030) 01/29/24 06:15 Urine Protein Trace (Negative) 01/29/24 06:15 Urine Glucose (UA) Norm (Normal) 01/29/24 06:15 Urine Ketones Negative (Negative) 01/29/24 06:15 Urine Blood Neg (Negative) 01/29/24 06:15 Urine Nitrate Positive (Negative) A 01/29/24 06:15 Urine Bilirubin Neg (Negative) 01/29/24 06:15 Urine Urobilinogen 1 mg/dL (Negative) H 01/29/24 06:15 Ur Leukocyte Esterase Trace (Negative) H 01/29/24 06:15 Urine RBC 0-4 /hpf (0-2) H 01/29/24 06:15 Urine WBC 15-25 /hpf (0-5) H 01/29/24 06:15 Ur Squamous Epith Cells 5-10 /hpf (0-5) H 01/29/24 06:15 Calcium Oxalate Crystal 0-4 /hpf H 01/29/24 06:15 Amorphous Sediment Not Reportable 01/29/24 06:15 Urine Bacteria 2+ /hpf (NONE) H 01/29/24 06:15 Hyaline Casts 5-10 /lpf H 01/29/24 06:15 Urine Mucus 2+ /hpf 01/29/24 06:15 Blood Type B Negative 01/29/24 06:15 Rho(D) Type Rh negative 01/29/24 06:15 Antibody Screen Negative 01/29/24 06:15 Vitals Last Vital Signs Temp 98.7 F 01/30/24 06:01 Pulse 66 01/30/24 06:01 Resp 18 01/30/24 06:01 BP 131/66 01/30/24 06:01 Pulse Ox 95 01/30/24 06:01 O2 Del Method Room Air 01/30/24 06:01 O2 Flow Rate 2 01/29/24 16:12 Results Labs OB ([facility]): Blood Type B Negative 01/29/24 Antibody Screen Negative 01/29/24 Hct 33.1 % (36-47) L 01/30/24 Hgb 10.20 g/dL (11.27-16.99) L 01/30/24 Rho(D) Type Rh negative 01/29/24 Plt Count 153 10^3/cmm (157-399) L 01/30/24 Hep Bs Antigen Non-reactive (Nonreactive) 01/03/24 Hep B Core Total Ab Non-reactive (Nonreactive) 01/03/24 Hepatitis C Antibody Non-reactive (Nonreactive) 01/03/24 TSH 0.43 uIU/mL (0.27-4.20) 06/25/23 Micro Urine Specimen 01/29/24 Discharge Plan Discharge Patient Disposition: Home Condition: Stable Prescriptions: New hydrocodone-acetaminophen 5-325 mg tablet 1 tab PO Q4H PRN (Reason: pain) Qty: 20 0RF acetaminophen 325 mg capsule 325 mg PO Q4H PRN (Reason: fever or postoperative pain) Qty: 60 0RF docusate sodium [Colace] 100 mg capsule 100 mg PO BID Qty: 60 0RF ferrous sulfate [Iron (ferrous sulfate)] 325 mg (65 mg iron) tablet 325 mg PO BID Qty: 30 0RF ibuprofen 800 mg tablet 800 mg PO TID PRN (Reason: pain) Qty: 60 0RF Continued citalopram 40 mg tablet 40 mg PO BEDTIME albuterol sulfate 90 mcg/actuation HFA aerosol inhaler 2 puff inhalation QID PRN (Reason: Shortness Of Breath) prednisone 20 mg tablet See Rx Instructions PO .COMPLEX PRN (Reason: joint pain flare) Qty: 30 1RF Rx Instructions: take 2 tab daily for 7 days as needed for arthritis flare PO PRN; azelastine 137 mcg (0.1 %) aerosol,spray 2 spray intranasal BID PRN (Reason: unknown) Rx Instructions: administer into each nostril fluticasone propionate [Flonase Allergy Relief] 50 mcg/actuation spray,suspension 2 spray intranasal DAILY PRN (Reason: Allergy Symptoms) Rx Instructions: administer into each nostril omeprazole magnesium [Prilosec OTC] 20 mg tablet,delayed release (DR/EC) 20 mg PO DAILY naproxen sodium [Aleve] 220 mg capsule See Rx Instructions .ROUTE .COMPLEX Rx Instructions: 440mg po in the am and 660mg po bedtime ICaps AREDS 4,296 mcg-226 mg-90 mg capsule 1 cap PO BID melatonin 3 mg capsule 3 mg PO BEDTIME PRN (Reason: Sleep) Barringtontri Aerosphere 160-9-4.8 mcg/actuation HFA aerosol inhaler 2 inh inhalation BID leflunomide 20 mg tablet 20 mg PO DAILY Qty: 30 5RF cetirizine [Allergy Relief (cetirizine)] 10 mg tablet 10 mg PO BEDTIME ferrous sulfate 325 mg (65 mg iron) Tablet 325 mg PO BEDTIME cyanocobalamin (vitamin B-12) [Vitamin B-12] 1,000 mcg Tablet 1,000 mcg PO QAM cholecalciferol (vitamin D3) [Vitamin D3] 25 mcg (1,000 unit) Tablet 25 mcg PO BEDTIME Cranberry Gummies 1 tab PO BEDTIME Discharge Orders: Discharge Order (Routine); Ordered 01/30/24 Ordered By: Ever Gregg Discharge Diet: Usual diet Discharge Activity: Limit activity as instructed Patient Instructions: Urinary Bladder Suspension (DC), Acute Wound Care (DC), Opioid Safety (DC), Salpingo-Oophorectomy (GEN), Vaginal Hysterectomy (GEN), OB Discharge Report, OB Food/Drug Interaction Guide, Opioid Safety, Post Anesthesia Care Activity Restrictions/Additional Instructions: 1. Please call [facility] on next working day to make your post-operative appointment in 2 weeks. 2. Please stay home until you come back to the clinic on first post-hospatilization check up. 3. Please follow instructions on your medications CAREFULLY. 4. If you have abdominal incision, do not cover it unless dressing is necessary because of drainage. OK to shower, but avoid bath. Leave steri-strips until they fall off. If they are still on one week after surgery, you may remove them. 5. If you had vaginal surgery or vaginal repair, Dr. Gregg may instruct you to take SITZ bath. 6. Yellow, blood tinged odorous vaginal discharge is usually normal after hysterectomy or vaginal surgeries. 7. No SEXUAL INTERCOURSE, tampons, or douches until you are completely released from the post-operative care. 8. Avoid constipation by eating right and maybe using some Metamucil or Milk of Magnesia. 9. All prescription refills are given during the working hours. Please do no wait till it runs out. Call the clinic at [phone] before your medication runs out. The clinic will get in touch with your doctor to prescribe medications if necessary. 10. Please remain within 40 mile radius from our hospital because emergencies do happen now and then during the post-operative period. 11. If you have stairs at home, take one step at a time slowly and minimize the number of trips. It helps to stay in one floor for the next few days. No lifting except what you can lift by one hand until you are released from the post-operative care. 12. Driving is discouraged until you are well healed. It may be 3-4 weeks before you feel strong enough to drive. You should be able to turn and look through the rear window without pain and you should be able to push the brake pedal very hard without pain before you drive. No fast rules, but SAFETY should be your primary concern. DO NOT drive if you are on sedating medications such as narcotics. 13. Call the clinic (during working hours) to make urgent appointment or go to the Emergency room, if any of the following occurs: i. Vaginal bleeding becomes heavy, more than a period. ii. Incision becomes red and sore, or drains pus. iii. Your TEMPERATURE is over 100.4F or you have chill. iv. IV site becomes red and swollen (a little ``knot?? is usually OK) v. Persistent nausea and vomiting vi. Persistent constipation or diarrhea vii. Rash or allergic reaction to medications. Discharge Attestations GOGGLES ASSEMBLER Time Spent in Discharge Care*: greater than 30 min Coding Level of Care Code Acute Code for Chg Vince
[2024-01-30 11:30] VITALS: BP 124/75; PULSE 80; RESP 16; TEMP 36.4
[2024-01-30] MEDS: HYDROcodone-acetaminophen 5-325 mg Tablet PO (12:15)
== END 2024-01-30 12:20 | disposition home or self-care (01) ==
LOC: OBGYN 09:35
PROVIDERS: Admitting Provider Obstetrics & Gynecology; PCP Nurse Practitioner; Visit Provider Obstetrics & Gynecology
PROC: (CPT 57240; principal; 2024-01-29 07:00)
PROC: (CPT 58720; 2024-01-29 07:00)
PROC: 0JQC0ZZ Repair Pelvic Region Subcutaneous Tissue and Fascia, Open Approach (ICD-10-PCS; CPT 57240; 2024-01-29 07:00)
PROC: (CPT 57288; 2024-01-29 07:00)
DX: N81.4 Uterovaginal prolapse, unspecified (principal); N39.46 Mixed incontinence; N72 Inflammatory disease of cervix uteri; N83.8 Other noninflammatory disorders of ovary, fallopian tube and broad ligament; J45.909 Unspecified asthma, uncomplicated; M06.9 Rheumatoid arthritis, unspecified
CPT/HCPCS: 57240; 57288; 58262; 36415; 80053; 81001; 85025; 85027; 86850; 86900; 87077; 87086; 87186; 88307; C1713; C1762; G0378; J0690; J1100; J1200; J1650; J1885; J2250; J2405; J2704; J2710; J3010; J3490; J7030; J7040; J7121

== ENCOUNTER 2024-04-29 06:00 | Outpatient (RCR) | payer OTHER, SELFPAY | END 2024-05-29 23:59 | disposition home or self-care (01) | LOC: MPT 06:00 | PROVIDERS: Visit Provider Orthopaedic Surgery | DX: M54.9 Dorsalgia, unspecified (principal); G89.29 Other chronic pain | CPT/HCPCS: 97110; 97162; G0283 ==

== ENCOUNTER → 2024-05-13 15:20 | Outpatient (BNVA) | payer OTHER, SELFPAY | PROVIDERS: PCP Nurse Practitioner; Visit Provider Orthopaedic Surgery | DX: M54.9 Dorsalgia, unspecified (principal) | CPT/HCPCS: 72110 ==

== ENCOUNTER 2024-05-30 06:00 | Outpatient (RCR) | payer OTHER, SELFPAY | END 2024-06-28 23:59 | disposition home or self-care (01) | LOC: MPT 06:00 | PROVIDERS: PCP Nurse Practitioner; Visit Provider Orthopaedic Surgery | DX: M54.9 Dorsalgia, unspecified (principal); G89.29 Other chronic pain | CPT/HCPCS: 97110; G0283 ==

== ENCOUNTER 2024-06-06 15:09 | Outpatient (CLI) | payer OTHER, SELFPAY ==
[2024-06-06 15:57] LABS: Basophils % 0.3 %; Eosinophils # 0.1 10^3/uL (0.0-0.8); Eosinophils % 1.5 %; Hematocrit 39.9 % (36-47); Lymphocytes # 0.9 10^3/uL (0.8-4.8); Lymphocytes % 13.7 %; Mean Corpuscular HGB Conc 31.3 g/dL (30-55); Mean Corpuscular Hemoglobin 27.5 pg (27-33); Mean Corpuscular Volume 87.7 fl (85-98); Mean Platelet Volume 10.4 fL (7.4-10.4); Monocytes # 0.5 10^3/uL (0.2-0.9); Monocytes % 8.2 %; Neutrophils # 4.95 10^3/uL (1.8-7.7); Neutrophils % 75.5 %; Nucleated Red Blood Cells % 0 %; Platelet Count 268 10^3/cmm (157-399); Red Blood Count 4.55 10^6/uL (3.85-5.65); Red Cell Distribution Width 17.2 % (12.1-15.1); White Blood Count 6.56 10^3/uL (3.29-11.43)
[2024-06-06 16:05] LABS: Erythrocyte Sedimentation Rate 29 mm/hr (0-15)
[2024-06-06 16:13] LABS: Alanine Aminotransferase 35 U/L (0-33); Alkaline Phosphatase 56 U/L (35-105); Aspartate Amino Transferase 22 U/L (0-32); C Reactive Protein 6.1 mg/L (0.0-4.9); Globulin 2.2 g/dL (1.3-4.6); Total Bilirubin 0.3 mg/dL (0.15-1.2); Total Protein 6.2 g/dL (6.6-8.7)
[2024-06-09 12:04] LABS: Cyclic Citrullinated Peptide <16 UNITS
[2024-06-10 21:55] LABS: Mutated Citrullinated Vimentin <20 U/mL (<20)
== END 2024-06-06 15:10 | disposition home or self-care (01) ==
LOC: LAB 15:10
PROVIDERS: PCP Nurse Practitioner; Visit Provider Internal Medicine Rheumatology
DX: Z79.899 Other long term (current) drug therapy (principal); M19.90 Unspecified osteoarthritis, unspecified site
CPT/HCPCS: 36415; 80076; 82565; 83520; 85025; 85651; 86140; 86200

== ENCOUNTER 2024-06-29 06:00 | Outpatient (RCR) | payer OTHER, SELFPAY | END 2024-07-03 23:59 | disposition home or self-care (01) | LOC: MPT 06:00 | PROVIDERS: PCP Nurse Practitioner; Visit Provider Orthopaedic Surgery | DX: M54.9 Dorsalgia, unspecified (principal); G89.29 Other chronic pain | CPT/HCPCS: 97110; G0283 ==

== ENCOUNTER → 2024-07-03 15:16 | Outpatient (BNVA) | payer OTHER, SELFPAY | PROVIDERS: PCP Nurse Practitioner; Visit Provider Nurse Practitioner | DX: R30.0 Dysuria (principal) | CPT/HCPCS: 81000 ==

== ENCOUNTER → 2024-09-23 14:13 | Outpatient (BNVA) | payer OTHER, SELFPAY | PROVIDERS: PCP Nurse Practitioner; Visit Provider Nurse Practitioner | DX: R31.9 Hematuria, unspecified (principal); R10.9 Unspecified abdominal pain; N39.0 Urinary tract infection, site not specified; Z23 Encounter for immunization | CPT/HCPCS: 81000; 87086 ==

== ENCOUNTER 2024-10-30 13:03 | Outpatient (CLI) | payer OTHER, SELFPAY ==
--- NOTE | 2024-10-30 13:00 | MM_ITS ---
WS: [id number] BILATERAL SCREENING DIGITAL TOMOSYNTHESIS MAMMOGRAM WITH CAD HISTORY: SCREENING COMPARISON: 11/28/2017, 08/02/2023 Bilateral CC and MLO views with tomosynthesis and synthetic mammography submitted. Computer aided detection analyzed. Breast composition: There are scattered areas of fibroglandular density. No suspicious masses, microcalcifications or architectural distortion. Stable 5 mm mass in the anterior RIGHT breast. Benign calcifications. MM/MM scr BI tomosynthesis [id number] IMPRESSION: BI-RADS: 2 - Benign. FOLLOW UP: 1 Year Follow-up
== END 2024-10-30 13:04 | disposition home or self-care (01) ==
PROVIDERS: PCP Nurse Practitioner; Visit Provider Nurse Practitioner
DX: Z12.31 Encounter for screening mammogram for malignant neoplasm of breast (principal); M43.16 Spondylolisthesis, lumbar region; R92.323 Mammographic fibroglandular density, bilateral breasts; N63.10 Unspecified lump in the right breast, unspecified quadrant; R92.1 Mammographic calcification found on diagnostic imaging of breast; Z98.890 Other specified postprocedural states; M41.86 Other forms of scoliosis, lumbar region; M47.897 Other spondylosis, lumbosacral region
CPT/HCPCS: 72110; 77063; 77067

== ENCOUNTER 2024-11-11 13:49 | Outpatient (CLI) | payer OTHER, SELFPAY ==
--- NOTE | 2024-11-11 13:45 | MR_ITS ---
WS: [id number] MRI LUMBAR SPINE NONCONTRAST TECHNIQUE: Sagittal T1, T2 and STIR imaging. Axial T1 and T2 imaging. CLINICAL INFORMATION: lumbar pain COMPARISON: None. FINDINGS: Lumbar scoliosis convex LEFT. Osteopenia. No acute compression fractures. Disc bulging worse at L2-3. L1-L2: Mild disc bulging. Mild facet arthropathy. Slight narrowing of the RIGHT subarticular recess. Mild central canal stenosis. L2-L3: RIGHT subarticular disc protrusion impinges the RIGHT subarticular recess and traversing RIGHT L3 nerve root. Moderate to severe central canal stenosis. Moderate facet arthropathy with small facet effusions. Mild bilateral foraminal narrowing. L3-L4: Minimal anterolisthesis. Mild annular bulging. Advanced facet arthropathy. Slight narrowing of the subarticular recess bilaterally LEFT greater than RIGHT. Mild LEFT foraminal narrowing. Small bilateral facet effusions. L4-L5: Grade 1 anterolisthesis. Impingement on the RIGHT subarticular recess and traversing RIGHT L5 nerve root. Facet arthropathy. Mild RIGHT foraminal narrowing. LEFT foramen is patent. Spinal canal is patent. L5-S1: Disc osteophyte complex with endplate ridging. Slight effacement of the ventral thecal sac. Foramina are patent. Visualized pelvic bony structures: Normal. Paravertebral soft tissues: Normal. Peripelvic LEFT renal cysts. Partially visualized LEFT adnexal cyst measuring 2.6 x 1.9 cm MR/MR lumbar spine wo con* [id number] IMPRESSION: 1. Lumbar scoliosis. No acute compression. 2. Moderate to severe central canal stenosis L2-3 with marked impingement on t he RIGHT subarticular recess and traversing RIGHT L3 nerve root. Moderate facet arthropathy at this level with small facet effusions. 3. Mild central canal stenosis L3-4 with impingement on the RIGHT subarticular recess. 4. Impingement of RIGHT L4-5 subarticular recess. 5. Mild central canal stenosis L1-2 with narrowing of the RIGHT subarticular r ecess. 6. Advanced facet arthropathy L3-L4 L4-L5.
[2024-11-11 15:22] LABS: Erythrocyte Sedimentation Rate 46 mm/hr (0-15)
[2024-11-11 15:26] LABS: Basophils % 0.2 %; Eosinophils # 0.1 10^3/uL (0.0-0.8); Eosinophils % 0.5 %; Hematocrit 37.3 % (36-47); Lymphocytes # 1.2 10^3/uL (0.8-4.8); Lymphocytes % 12.5 %; Mean Corpuscular HGB Conc 31.6 g/dL (30-55); Mean Corpuscular Hemoglobin 28.7 pg (27-33); Mean Corpuscular Volume 90.8 fl (85-98); Mean Platelet Volume 9.9 fL (7.4-10.4); Monocytes # 0.5 10^3/uL (0.2-0.9); Monocytes % 5.5 %; Neutrophils # 7.67 10^3/uL (1.8-7.7); Neutrophils % 80.7 %; Nucleated Red Blood Cells % 0 %; Platelet Count 280 10^3/cmm (157-399); Red Blood Count 4.11 10^6/uL (3.85-5.65); White Blood Count 9.51 10^3/uL (3.29-11.43)
[2024-11-11 15:59] LABS: Alanine Aminotransferase 27 U/L (0-33); Albumin Level 3.7 g/dL (3.5-5.2); Alkaline Phosphatase 57 U/L (35-105); Aspartate Amino Transferase 20 U/L (0-32); Creatinine Clr Calc Pharmacy 116.3643; Globulin 3.1 g/dL (1.3-4.6); Glomerular Filtration Rate 100.6 mL/min (90-130); Total Bilirubin 0.3 mg/dL (0.15-1.2); Total Protein 6.8 g/dL (6.6-8.7)
== END 2024-11-11 13:50 | disposition home or self-care (01) ==
PROVIDERS: PCP Nurse Practitioner; Referring Provider Internal Medicine Rheumatology; Visit Provider Orthopaedic Surgery
DX: M43.16 Spondylolisthesis, lumbar region (principal); M48.061 Spinal stenosis, lumbar region without neurogenic claudication; M79.604 Pain in right leg; M79.605 Pain in left leg; Z79.899 Other long term (current) drug therapy; M41.86 Other forms of scoliosis, lumbar region; M47.896 Other spondylosis, lumbar region; M25.48 Effusion, other site; M85.88 Other specified disorders of bone density and structure, other site; M51.369 Other intervertebral disc degeneration, lumbar region without mention of lumbar back pain or lower extremity pain; M51.26 Other intervertebral disc displacement, lumbar region; M25.78 Osteophyte, vertebrae; N28.1 Cyst of kidney, acquired; N83.202 Unspecified ovarian cyst, left side
CPT/HCPCS: 36415; 72148; 80076; 82565; 85025; 85651; 86140

== ENCOUNTER → 2024-11-13 14:28 | Outpatient (BNVA) | payer OTHER, SELFPAY | PROVIDERS: PCP Nurse Practitioner; Visit Provider Orthopaedic Surgery | DX: Z01.818 Encounter for other preprocedural examination (principal) | CPT/HCPCS: 36415; 80053; 81001; 85025 ==

== ENCOUNTER 2025-02-20 13:37 | Outpatient (CLI) | payer OTHER, SELFPAY ==
[2025-02-20 14:29] LABS: Alanine Aminotransferase 21 U/L (0-33); Albumin Level 3.9 g/dL (3.5-5.2); Alkaline Phosphatase 64 U/L (35-105); Aspartate Amino Transferase 14 U/L (0-32); Globulin 2.9 g/dL (1.3-4.6); Total Protein 6.8 g/dL (6.6-8.7)
[2025-02-20 14:40] LABS: Hematocrit 37.9 % (36-47); Hemoglobin 12.20 g/dL (11.27-16.99); Mean Corpuscular HGB Conc 32.2 g/dL (30-55); Mean Corpuscular Hemoglobin 29.3 pg (27-33); Mean Corpuscular Volume 90.9 fl (85-98); Nucleated Red Blood Cells % 0 %; Platelet Count 246 10^3/cmm (157-399); Red Blood Count 4.17 10^6/uL (3.85-5.65); White Blood Count 11.03 10^3/uL (3.29-11.43)
== END 2025-02-20 13:38 | disposition home or self-care (01) ==
PROVIDERS: PCP Nurse Practitioner; Visit Provider Internal Medicine Rheumatology
DX: Z79.899 Other long term (current) drug therapy (principal)
CPT/HCPCS: 36415; 80076; 82565; 85025; 85651; 86140

== ENCOUNTER → 2025-04-22 13:41 | Outpatient (BNVA) | payer OTHER, SELFPAY | PROVIDERS: PCP Nurse Practitioner; Visit Provider Family Medicine | DX: Z01.818 Encounter for other preprocedural examination (principal) | CPT/HCPCS: 80053; 81003; 85007; 85027 ==

== ENCOUNTER 2025-06-04 13:51 | Outpatient (CLI) | payer OTHER, SELFPAY ==
--- NOTE | 2025-06-04 14:30 | MRR_ITS ---
PROCEDURE INFORMATION: Exam: MR Thoracic Spine Without Contrast Exam date and time: 06/04/2025 2:33 PM Age: 64 years old Clinical indication: Pain in thoracic spine; Mid back pain. No specific injury. Pain x 1 year; Additional info: Spondylolisthesis at l4-l5 level TECHNIQUE: Imaging protocol: Magnetic resonance imaging of the thoracic spine without contrast. COMPARISON: 1. MR lumbar spine wo con* [id number] 11/11/2024 2:02 PM 2. CR XR lumbar spine min 4V [id number] 10/30/2024 3:31 PM FINDINGS: Bones/joints: Mild thoracolumbar levoscoliosis. No subluxation. Vertebral bodies have normal height. Marrow signal intensity is unremarkable. Mild disc desiccation at multiple levels. Spinal cord: Normal signal. No cord compression. T1-T2: No significant disc bulge or herniation. No severe spinal canal stenosis. No significant neural foraminal narrowing. T2-T3: No significant disc bulge or herniation. No severe spinal canal stenosis. No significant neural foraminal narrowing. T3-T4: No significant disc bulge or herniation. No severe spinal canal stenosis. No significant neural foraminal narrowing. T4-T5: No significant disc bulge or herniation. No severe spinal canal stenosis. No significant neural foraminal narrowing. T5-T6: No significant disc bulge or herniation. No severe spinal canal stenosis. No significant neural foraminal narrowing. T6-T7: T6-7: Tiny right paracentral disc protrusion. No canal or foraminal stenosis. T7-T8: No significant disc bulge or herniation. No severe spinal canal stenosis. No significant neural foraminal narrowing. T8-T9: T8-9: Disc desiccation and disc height loss with mild right disc-spur complex without canal or foraminal stenosis. T9-T10: No significant disc bulge or herniation. No severe spinal canal stenosis. No significant neural foraminal narrowing. T10-T11: No significant disc bulge or herniation. No severe spinal canal stenosis. No significant neural foraminal narrowing. T11-T12: No significant disc bulge or herniation. No severe spinal canal stenosis. No significant neural foraminal narrowing. T12-L1: No significant disc bulge or herniation. No severe spinal canal stenosis. No significant neural foraminal narrowing. Soft tissues: Unremarkable. MR/MR thoracic spin wo con* [id number] IMPRESSION: Mild multilevel thoracic spondylosis without evidence of canal or foraminal stenosis.
== END 2025-06-04 13:52 | disposition home or self-care (01) ==
LOC: RAD 13:52
PROVIDERS: PCP Nurse Practitioner; Visit Provider Orthopaedic Surgery
DX: M43.16 Spondylolisthesis, lumbar region (principal); M47.814 Spondylosis without myelopathy or radiculopathy, thoracic region
CPT/HCPCS: 72146

== ENCOUNTER 2025-07-08 16:16 | Outpatient (CLI) | payer OTHER, SELFPAY ==
[2025-07-08 17:23] LABS: Hematocrit 40.9 % (36-47); Hemoglobin 13.20 g/dL (11.27-16.99); Mean Corpuscular HGB Conc 32.3 g/dL (30-55); Mean Corpuscular Hemoglobin 29.6 pg (27-33); Mean Corpuscular Volume 91.7 fl (85-98); Nucleated Red Blood Cells % 0 %; Platelet Count 289 10^3/cmm (157-399); Red Blood Count 4.46 10^6/uL (3.85-5.65); White Blood Count 10.41 10^3/uL (3.29-11.43)
[2025-07-08 17:36] LABS: Glucose Urine UA Negative (Normal); Nitrate Urine Negative (Negative); Specific Gravity, Urine 1.028 (1.005-1.030)
[2025-07-08 17:41] LABS: Add Urine Microscopic? YES; Universal Test for UA Present (0)
[2025-07-08 18:07] LABS: UA Manual Slide Review YES
[2025-07-08 18:19] LABS: Alanine Aminotransferase 29 U/L (0-33); Albumin Level 4.0 g/dL (3.5-5.2); Alkaline Phosphatase 65 U/L (35-105); Aspartate Amino Transferase 25 U/L (0-32); Blood Urea Nitrogen 17 mg/dL (8-23); Calcium 9.5 mg/dL (8.5-10.5); Carbon Dioxide 25 mmol/L (22-29); Chloride 102 mmol/L (98-107); Globulin 3.2 g/dL (1.3-4.6); Glucose 99 mg/dL (65-115); Osmolality Calculated 298 mOsm/kg (285-295); Sodium 143 mmol/L (136-145); Total Protein 7.2 g/dL (6.6-8.7)
[2025-07-08 19:01] LABS: Anion Gap 20.0 (5-19); Potassium 4.0 mmol/L (3.5-5.1)
== END 2025-07-08 16:17 | disposition home or self-care (01) ==
LOC: LAB 16:17
PROVIDERS: PCP Nurse Practitioner; Visit Provider Orthopaedic Surgery
DX: Z01.818 Encounter for other preprocedural examination (principal)
CPT/HCPCS: 36415; 80053; 81001; 85025

== ENCOUNTER 2025-07-13 15:13 | Inpatient (IN) | payer OTHER, SELFPAY ==
[2025-07-13] VITALS (17 sets, daily range): BP systolic 122–196; BP diastolic 63–120; PULSE 78–114; RESP 15–20; TEMP 36.2–36.7; O2SAT 92–98; BMI 41.7; BMI 41.9
[2025-07-13 10:01] LABS: Add Urine Microscopic? NO
[2025-07-13 10:06] LABS: Glucose Urine UA Negative (Normal); Nitrate Urine Negative (Negative); Specific Gravity, Urine 1.023 (1.005-1.030)
[2025-07-13 10:20] LABS: UA Slide Review UA Slide Review Perf
[2025-07-13 10:21] LABS: Charge for UA Resulting for Rev
--- NOTE | 2025-07-13 10:23 | ANES.PREANE2 ---
Pre-Anesthetic Assessment Height/Weight: Height 5 ft 4 in Weight 243 lb Temp Pulse Resp BP Pulse Ox O2 Del Method 97.6 F 94 20 H 144/87 97 Room Air 07/13/25 10:03 07/13/25 10:03 07/13/25 10:03 07/13/25 10:03 07/13/25 10:03 07/13/25 10:03 Preop Diagnosis: Lumbar stenosis with neurogenic claudication; degenerative scoliosis Operation Date: 07/13/25 11:00 Proposed Procedures p Thoracic Fusion(Not Applicable) - Sunny H Stacy, DO s Lumbar Fusion(Not Applicable) - Sunny H Stacy, DO s Sacroiliac Joint Fusion SI Joint Fusion(Bilateral) - Sunny H Stacy, DO s Lumbopelvic Fixation(Not Applicable) - Sunny H Stacy, DO s Lumbar Spine Decompression Lumbar Decompression(Not Applicable) - Sunny Gaming Caron, DO Was Beta Tanner taken within 24 hours: N/A Was Clonidine taken within 24 hours: N/A Last intake: Intake Last Liquid Date 07/13/25 Last Liquid Time 00:15 Last Solid Date 07/13/25 Last Solid Time 00:15 Social No alcohol and No tobacco Exam alert, oriented x 3, clear to auscultation bilaterally and regular rate & rhythm Airway Submandibular: within normal limits Cervical ROM: within normal limits Mallampati: Class III Dentition: full Anesthetic Plan ASA status: 3 Anesthesia: General Other: No prior issues with anesthesia NPO since yesterday evening History of GERD on omeprazole Denies any pulmonary issues Denies any cardiac issues, preop BP 144/87 Labs reviewed from 07/08/2025 and acceptable for procedure, repeat UA today acceptable Plan for GETA Medications/Allergies Home Medications ?Medication ?Instructions ?Recorded ?Confirmed ?Last Taken ?Type albuterol sulfate 90 mcg/actuation 2 puff inhalation QID PRN 06/23/23 07/09/25 01/12/24 History aerosol inhaler Shortness Of Breath fluticasone propionate 50 2 spray intranasal DAILY PRN 06/25/23 07/09/25 Unknown History mcg/actuation nasal Allergy Symptoms spray,suspension (Flonase Allergy Relief) melatonin 3 mg capsule 3 mg PO BEDTIME PRN Sleep 06/25/23 07/09/25 01/20/24 History omeprazole magnesium 20 mg 20 mg PO DAILY 06/25/23 07/09/25 07/12/25 History tablet,delayed release (Prilosec OTC) vitamins A,C,N-eckx-ekrwpa 4,296 1 cap PO BID 06/25/23 07/09/25 07/09/25 History mcg-226 mg-90 mg capsule (ICaps AREDS) cholecalciferol (vitamin D3) 25 25 mcg PO BEDTIME 09/24/23 07/09/25 07/09/25 History mcg (1,000 unit) tablet (Vitamin D3) cyanocobalamin (vitamin B-12) 1,000 mcg PO QAM 09/24/23 07/09/25 07/12/25 History 1,000 mcg tablet (Vitamin B-12) ferrous sulfate 325 mg (65 mg 325 mg PO BID #30 tabs 01/30/24 07/09/25 07/12/25 Rx iron) tablet (Iron (ferrous sulfate)) estradiol 0.01% (0.1 mg/gram) 1 appful vaginal .COMPLEX 12/05/24 07/09/25 07/09/25 History vaginal cream azelastine 137 mcg (0.1 %) nasal 2 spray intranasal BID PRN unknown 04/17/25 07/13/25 07/11/25 Rx spray #30 mL budesonide 160 mcg-glycopyr 9 2 inh inhalation BID #10.7 grams 04/17/25 07/09/25 07/12/25 Rx mcg-formot 4.8 mcg/actuation HFA inhaler (Breztri Aerosphere) folic acid 1 mg tablet 1 mg PO DAILY #90 tabs 06/08/25 07/09/25 07/12/25 Rx prednisone 5 mg tablet 5 mg PO QDAY #90 tabs 06/08/25 07/09/25 07/12/25 Rx sulfasalazine 500 mg tablet 0.5 g PO BID #180 tabs 06/08/25 07/09/25 07/12/25 Rx tramadol 50 mg tablet 50 mg PO TID PRN take for moderate 06/08/25 07/09/25 07/12/25 Rx to severe pain PRN #90 tabs pilocarpine HCl 5 mg tablet 5 mg PO TID #90 tabs 06/09/25 07/09/25 07/12/25 Rx methenamine hippurate 1 gram tablet 1 g PO DAILY 07/09/25 07/13/25 07/12/25 History methotrexate 2.5 mg/mL oral 2.5 mg PO DIRECTED 07/09/25 07/09/25 07/04/25 History solution Soft Cervical collar #1 ea 07/13/25 Unknown Rx cetirizine 10 mg tablet 10 mg PO DAILY 07/13/25 07/13/25 07/12/25 History citalopram 40 mg tablet 40 mg PO DAILY 07/13/25 07/13/25 07/12/25 History methotrexate sodium 2.5 mg tablet 25 mg PO .FRIDAYS Rheumatoid 07/13/25 07/13/25 07/10/25 History Arthritis Allergies Allergy/AdvReac Type Severity Reaction Status Date / Time No Known Allergies Allergy Verified 07/09/25 12:46 Current Medications Generic Name Dose Route Start Last Admin Trade Name Freq PRN Reason Stop Dose Admin Sodium Chloride 1,000 mls @ 30 mls/hr 07/13/25 09:45 07/13/25 10:20 Sodium Chloride 0.9% IV 07/14/25 09:44 30 mls/hr .Q24H ROSA M Administration [facility] Anesthesia Medical History Immunization counseling High risk medication use Inflammatory arthritis Positive HAILEY (antinuclear antibody) Surgical History History of total vaginal hysterectomy (~01/29/24) with right salpingo-oophorectomy, anterior colporrhaphy augmented with allograft, mid urethral sling, cystoscopy performed by Dr. Gregg at [facility] for PP, uterine prolapse, cystocele, rectocele, mixed urinary incontinence. Negative pathology. History of knee replacement procedure of left knee December 2022 History of cholecystectomy Family History Sister Cancer lung Grandmother Cancer maternal - colon Heart disease maternal and paternal both from heart attack. Family/Other Cancer materanal aunts- brain and luekemia Stroke materanal uncle Father Chronic kidney disease (CKD) Heart disease Mother Heart disease Family history of Sjogren's disease Brother Heart disease Denies family history of Diabetes Thyroid disease Social History Smoking and tobacco/nicotine status: never used tobacco/nicotine Alcohol intake: never Substance/Drug Use: never Female Reproductive History Para: 3 Spontaneous abortions: Yes Data Anesthesia 07/13/25 10:10 Urine 07/13/25 Range/Units 09:58 Urine Color Dark yellow A (Yellow) Urine Appearance Cloudy A (CLEAR) Urine pH 5.5 (5-7) Ur Specific Apollo 1.023 (1.005-1.030) Urine Protein 1+ A (Negative) Urine Glucose (UA) Negative (Normal) Urine Ketones Trace (Negative) Urine Nitrate Negative (Negative) Urine Bilirubin Negative (Negative) Ur Leukocyte Esterase Negative (Negative) Urine WBC 0-5 (0-5) /hpf
[2025-07-13 10:25] LABS: Hematocrit 37.4 % (36-47); Hemoglobin 12.10 g/dL (11.27-16.99); Mean Corpuscular HGB Conc 32.4 g/dL (30-55); Mean Corpuscular Hemoglobin 29.5 pg (27-33); Mean Corpuscular Volume 91.2 fl (85-98); Nucleated Red Blood Cells % 0 %; Platelet Count 256 10^3/cmm (157-399); Red Blood Count 4.10 10^6/uL (3.85-5.65); White Blood Count 8.87 10^3/uL (3.29-11.43)
[2025-07-13] MEDS: ceFAZolin 2,000 mg SDV 2000 MG IVP ×2 (11:00→17:04)
[2025-07-13] MEDS: lidocaine-epi 1% 20 mL INJ INJECTION (11:35)
[2025-07-13] MEDS: heparin, porcine 1,000 unit/mL INJ 10 mL 10000 UNIT IRRIGATION (12:27)
[2025-07-13] MEDS: tobramycin 40 mg/mL SDV 2mL 240 MG XX (12:44)
--- NOTE | 2025-07-13 15:33 | P.OP_ITS ---
Operative Report Date of procedure: July 13, 2025 Pre-op diagnosis: Lumbar stenosis neurogenic claudication Degenerative scoliosis Post-op diagnosis: same Surgeon: Sunny Kumar DO Estimated blood loss (mL): 250 Procedure: 1. T10 to pelvis fusion posterior fusion 2. T10-S1 posterior spine instrumentation 3. Lumbopelvic instrumentation 4. Open SI joint fusion on the right 5. Open SI joint fusion on the left 6. L2/3 laminectomy with facetectomy 7. Use of computer navigation stereotactic for spine 8. Use of allograft Patient brought to the operative suite after undergoing anesthesia was placed in the prone position. All areas impingement well-padded. Patient is prepped and draped in normal sterile fashion. Skin incisions made using the previous skin incision extending slightly above and below. The thoracolumbar fascia was split and subperiosteal dissection was made out to the transverse process of T10 - L5 bilaterally as well as the sacral ala bilaterally. Sacrum and SI joints were dissected out as well. Next attention was brought to placing the fiducial for the C-arm. This is going to be used for the computer navigation. 2 pins were placed into the right iliac crest which were later moved to the end of the case. The fiducial was attached. C-arm was brought in and then spun around the patient. The information from C arm was then later used after is loaded the computer for the placement of pedicle screws. Next attention was brought to placing the pedicle screws. This was done T10 bilaterally, T11 bilaterally, T12 bilaterally, L1 bilaterally, L2 on the left, L3 bilaterally L4 bilaterally, L5 bilaterally and S1 bilaterally. The computer navigated awl was inserted into the pedicle. Followed by the pedicle feeler. Followed by placement of the screws using the computer navigation. At all these levels. Next attention was placing the iliac screws. This was done using the computer navigated awl. This is placed through the ala across the SI joint into the iliac crest. Then followed by the pedicle feeler. Followed by computer navigated tap. 90 mm 9.5 millimeter pedicle screws were then placed into the iliac crest. This was done bilaterally. Next attention was brought to the open SI joint fusions. This was done by using the computer navigated awl crossing the SI joint. Through direct visualization as well. The pedicle feeler was used to make sure was crossed no breaches. The canal was then filled with bone graft. And then a computer navigated SI joint f usion screws placed across the SI joint. This process was done on both the right and the left side. Laminectomy was then performed L2/3. The high-speed bur was used to take down the lamina of L2 the facet joints were taken down with a high-speed bur curved curette and Kerrisons were used to take the remaining bone down the ligament flavum was taken down from L2/3. The facet joint was taken down bilaterally. The L2 nerves were completely free bilaterally and the L3 nerves were traced around the L3 pedicles bilaterally. Wounds were then irrigated. The liudmila was then attached from [id number] L1 and L2 L3, L4, L5, S1 and into the iliac screw completing the lumbopelvic fixation. This was done bilaterally. The screw caps were then torqued into position. This was done bilaterally. Next attention was brought to decorticating the transverse processes of T10 bilateral T11 bilaterally T12 bilaterally L1 bilaterally L2 bilaterally L3 bilaterally L4 bilaterally L5 bilaterally and sacr al ala bilaterally as well as the SI joints. Osteoamp bone graft was then packed into the gutters. And across the SI joint. Vancomycin powder and tobramycin was mixed with calcium sulfate beads packed into the wound was placed deep drain was placed and wound was closed in layered fashion with Vicryl and Monocryl. Sterile dressings were applied patient was transferred to the PACU in stable condition.
--- NOTE | 2025-07-13 15:50 | XR_ITS ---
WS: [id number] INTRAOPERATIVE TECHNIQUE: 8 Spot fluoroscopic images for intraoperative purposes. FLUOROSCOPY TIME: 21 seconds CLINICAL INFORMATION: or pic, decompression FINDINGS: Intraoperative changes pedicle screw fixation with interconnecting rods and bilateral sacroiliac fixation screws extending from approximately T10-S1 XR/XR lumbar spine 2-3V* [id number] IMPRESSION: Images obtained for intraoperative purposes.
--- NOTE | 2025-07-13 16:04 | W.PM.OPSFHP ---
Same Day Surgery H&P Indication for Procedure/HPI DATE OF PROCEDURE: July 13, 2025 CHIEF COMPLAINT/INDICATIONFOR SURGICAL PROCEDURE: Back and leg pain PREOP DIAGNOSIS: Lumbar stenosis with neurogenic claudication; degenerative scoliosis PLANNED PROCEDURE: Operation Date: 07/13/25 11:00 Proposed Procedures p Thoracic Fusion(Not Applicable) - Sunny Kumar, DO s Lumbar Fusion(Not Applicable) - Sunny Kumar, DO s Sacroiliac Joint Fusion SI Joint Fusion(Bilateral) - Sunny Kumar, DO s Lumbopelvic Fixation(Not Applicable) - Sunny Kumar, DO s Lumbar Spine Decompression Lumbar Decompression(Not Applicable) - Sunny Kumar, DO Medications/Allergies* Home Medications ?Medication ?Instructions ?Recorded ?Confirmed ?Type albuterol sulfate 90 mcg/actuation 2 puff inhalation QID PRN 06/23/23 07/09/25 History aerosol inhaler Shortness Of Breath fluticasone propionate 50 2 spray intranasal DAILY PRN 06/25/23 07/09/25 History mcg/actuation nasal Allergy Symptoms spray,suspension (Flonase Allergy Relief) melatonin 3 mg capsule 3 mg PO BEDTIME PRN Sleep 06/25/23 07/09/25 History omeprazole magnesium 20 mg 20 mg PO DAILY 06/25/23 07/09/25 History tablet,delayed release (Prilosec OTC) vitamins A,C,X-jlrj-hdkzsc 4,296 1 cap PO BID 06/25/23 07/09/25 History mcg-226 mg-90 mg capsule (ICaps AREDS) cholecalciferol (vitamin D3) 25 25 mcg PO BEDTIME 09/24/23 07/09/25 History mcg (1,000 unit) tablet (Vitamin D3) cyanocobalamin (vitamin B-12) 1,000 mcg PO QAM 09/24/23 07/09/25 History 1,000 mcg tablet (Vitamin B-12) estradiol 0.01% (0.1 mg/gram) 1 appful vaginal .COMPLEX 12/05/24 07/09/25 History vaginal cream methenamine hippurate 1 gram tablet 1 g PO DAILY 07/09/25 07/13/25 History methotrexate 2.5 mg/mL oral 2.5 mg PO DIRECTED 07/09/25 07/09/25 History solution cetirizine 10 mg tablet 10 mg PO DAILY 07/13/25 07/13/25 History citalopram 40 mg tablet 40 mg PO DAILY 07/13/25 07/13/25 History methotrexate sodium 2.5 mg tablet 25 mg PO .FRIDAYS Rheumatoid 07/13/25 07/13/25 History Arthritis Allergies/Adverse Reactions Allergy/AdvReac Type Severity Reaction Status Date / Time No Known Allergies Allergy Verified 07/09/25 12:46 Current Medications: Generic Name Dose Route Start Last Admin Trade Name Safia PRN Reason Stop Dose Admin Albuterol/Ipratropium 3 ml 07/13/25 16:00 07/13/25 15:30 Ipratropium-Albuterol 3 Ml Neb INHALATION Not Given QID.RESPIRATORY ROSA M Sodium Chloride 1,000 mls @ 30 mls/hr 07/13/25 09:45 07/13/25 10:20 Sodium Chloride 0.9% IV 07/14/25 09:44 30 mls/hr .Q24H ROSA M Administration Pertinent History/Comorbid Conditions* Medical History (Updated 09/23/24 @ 14:37 by ANICETO Cannon) Immunization counseling High risk medication use Inflammatory arthritis Positive HAILEY (antinuclear antibody) Surgical History (Updated 02/13/24 @ 14:42 by Glenna Martinez APN, KANG) History of total vaginal hysterectomy (~01/29/24) with right salpingo-oophorectomy, anterior colporrhaphy augmented with allograft, mid urethral sling, cystoscopy performed by Dr. Gregg at [facility] for PP, uterine prolapse, cystocele, rectocele, mixed urinary incontinence. Negative pathology. History of knee replacement procedure of left knee December 2022 History of cholecystectomy Family History (Updated 06/25/23 @ 09:44 by Krystle Oconnor LPN) Brother Grandmother Sister Family history of Sjogren's disease Mother Heart disease Grandmother maternal and paternal both from heart attack. Father Mother Brother Chronic kidney disease (CKD) Father Cancer Sister lung Grandmother maternal - colon Family/Other materanal aunts- brain and luekemia Stroke Family/Other materanal uncle Denies family history of Diabetes Thyroid disease Social History Smoking and tobacco/nicotine status: never used tobacco/nicotine Alcohol intake: never Substance/Drug Use: never Pertinent Exam Findings alert, oriented x 3 and procedure specific exam findings Recommendations Risks and benefits of procedure reviewed Surgery/Procedure today Coding Level of Care Code Acute Code for Chg Fwd
[2025-07-13] MEDS: ferrous sulfate EC 325 mg Tablet PO (17:04)
[2025-07-13] MEDS: HYDROcodone-acetaminophen 5-325 mg Tablet PO (17:04)
[2025-07-13] MEDS: ondansetron 2 mg/ML SDV 2 mL 4 MG IVP (18:32)
--- OUTSIDE RECORDS SUMMARY | 2025-07-13 19:27 | XMS_ITS | Clinical Summary ---
Author Organization [facility] Address [address] Henriquez: Epic Prelude ADT [place] [address] Care Team Providers Care Slot Host Name Role Phone Chandrakant Worrell Primary Care Provider [phone] Allergies No known active allergies Medications etodolac (LODINE) 400 mg tablet 09/27/19 20 Active OTHER Provider please include Medication name, dose, route and frequency 10/14/19 20 Active aspirin (ECOTRIN EC) 81 mg Tablet, Delayed Release (E.C.) Take 1 Tablet (81 mg) by mouth daily. 100 Tablet 3 10/14/19 20 Active nitroglycerin (NITROSTAT) 0.4 mg Tablet, Sublingual Place 1 Tablet (0.4 mg) under tongue every 5 minutes as needed for Chest Pain (If no relief after 2nd nitro, call 911.). 25 Tablet 3 10/14/19 20 Active erenumab-aooe (Aimovig Autoinjector) 140 mg/mL Auto-Injector 10/02/19 20 Active diltiaZEM (CARDIZEM CD) 120 mg Controlled Delivery 24 hour capsule Take 1 Capsule (120 mg) by mouth daily. 30 Capsule 11 10/14/19 20 Active citalopram (CeleXA) 20 mg tablet TAKE 1 TABLET BY MOUTH DAILY AT BEDTIME 30 Tablet 6 08/17/19 18 Active propranoloL (INDERAL) 40 mg tablet TAKE 1 TABLET BY MOUTH THREE TIMES DAILY. 90 Tablet 3 06/06/20 16 Active albuterol sulfate 90 mcg/Actuation inhaler INHALE 2 PUFFS BY MOUTH EVERY 6 HOURS NEEDED FOR SHORTNESS OF BREATH. 18 Gram 0 01/22/20 16 Active albuterol (ACCUNEB) 1.25 mg/3 mL Solution for Nebulization Take 3 mL (1.25 mg) by inhalation every 6 hours as needed for Shortness of Breath. 3 mL 3 01/26/20 16 Active nebulizerIndicat ions:Asthma with acute exacerbation, unspecified asthma severity Length of need 99 monthsNebulizer with compressor, Kit: Disposable Nebulizer Kit, 2 per month, filters.. 1 Each 0 01/26/20 16 Active acetaminophen (TYLENOL) 500 mg tablet Take 1,000 mg by mouth every 6 hours as needed for Pain, Break-Through. 01/28/20 15 Active melatonin 1 mg Tablet Take 1 mg by mouth nightly as needed. 01/20/20 16 Active prednisoLONE 5 mg tablet Take 5 mg by mouth daily. Active methotrexate (RHEUMATREX) 2.5 mg Tablet Take 2.5 mg by mouth every 7 days. Activ e cefdinir (OMNICEF) 300 mg capsule Take 1 Capsule (300 mg) by mouth every 12 hours. 10 Capsule 07/15/20 24 Active ascorbic acid, vitamin C, (Vitamin C) 500 mg tablet Take 1 Tablet (500 mg) by mouth 2 times daily. 60 Tablet 5 08/08/19 25 Active methenamine hippurate (HIPREX) 1 gram TabletIndication s:Recurrent UTI TAKE 1 TABLET (1,000 MG) BY MOUTH 2 TIMES DAILY. 60 Tablet 5 01/29/20 25 Active Active Problems Problem Noted Date Diagnosed Date Primary osteoarthritis of left knee 02/28/2016 Arthritis of knee, left 11/08/2015 Tendinitis of right rotator cuff 11/08/2015 Impingement syndrome, shoulder 09/01/2015 Major depressive disorder, single episode, unspe cified Tension headache Migraine, unspecified, witho ut mention of intractable migraine without mention of status migrainosus Unspecified asthma(493.90) Obesity, unspecified Mitral valve prolapse Unspecified deficiency anemia Resolved Problems Problem Noted Date Diagnosed Date Resolved Date Gallstones 01/26/2015 02/04/2015 Viral wart 03/18/2011 08/26/2013 Obese 03/18/2011 03/18/2011 Pain in joint, multiple sites 08/10/2010 08/26/2013 Recurrent acute otitis media 08/10/2010 08/26/2013 Family circumstance 10/17/2008 11/02/19 09 Overview (11/24/2020): Teenaged daughter ran away from home, son with AD/HD now insists on sleeping in her bed and disrupting her sleep. Encounters Date Type Department Care Team Description 06/16/2025 External Device Data [facility] Provider, Abstract 05/31/2025 Refill [facility] [address] [place] [address] Eunice Ramírez PA Recurrent UTI 05/20/2025 External Device Data [facility] Provider, Abstract 04/14/2025 External Device Data [facility] Provider, Abstract from Last 3 Months Immunizations Immunization Administration Dates Next Due Influenza Seasonal Unspecifi ed Formulation IM 06/14/2017,05/30/2005,05/04/2004,2002 Influenza Vaccine Split 3+ Yrs IM 09/16/2010 Family History Medical History Relation Name Comments Migraines Daughter Heart Disease Father Other Father Heart Disease Mother Other Mother ADHD Son Relation Name Status Comments Daughter Father Alive Mother Alive Son Social History Tobacco Use Types Packs/Day Years Used Date Smoking Tobacco: Never Smokeless Tobacco: Never Tobacco Cessation:Counseling Given: No Alcohol Use Standard Drinks/Week Comments No 0 (1 standard drink = 0.6 oz pur e alcohol) Comments Unknown Sex and Gender Information Value Date Recorded Sex Assigned at Female 12/15/2023 7:13 PM CDT 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 Gender Identity Female 12/15/2023 7:13 PM CDT Sexual Orientation Straight 12/15/2023 7: 13 PM CDT Last Filed Vital Signs Vital Sign Reading Time Taken Comments Blood Pressure 130/80 10/14/2019 3:12 PM CDT Pulse 71 10/14/2019 3:12 PM CDT Temperature 36.8 C (98.2 F) 01/26/2016 10:54 AM CDT Respiratory Rate 16 01/26/2016 10:54 AM CDT Oxygen Saturation - - Inhaled Oxygen Concentration - - Weight 106.6 kg (235 lb) 10/14/2019 3:12 PM CDT Height 162.6 cm (5' 4 ) 10/14/2019 3:12 PM CDT Body Mass Index 40.34 10/14/2019 3:12 PM CDT Plan of Treatment Health Maintenance Due Date Last Done Comments DTAP/TDAP/TD VACCINES (1 - Tdap) 1979 HPV/Cotest (21-29) 1981 CERVICAL CANCER SCREENING 1990 HPV/Cotest (30-65) 1990 PAP SMEAR 1990 BREAST CANCER SCREENING 2000 COLORECTAL SCREENING 2005 Colorectal Cancer Screening 2005 FIT-DNA Q 3 years 2005 FIT/FOBT Q 1 year 2005 Flex Sig/CT Colonography Q 5 years 2005 RSV VACCINE (60+ or ) (1 - Risk 50-74 years 1-dose series) 2010 ZOSTER VACCINE (1 of 2) 2010 INFLUENZA VACCINE (#1) 2025 7, 09/16/2010, 05/30/2005, Additional history exists [facility] [place] [facility] Care Teams Slot Host Relationship Specialty Start Date End Date Chandrakant Worrell DO [address] [place] [address] PCP - General Family Practice 10/16/19
--- OUTSIDE RECORDS SUMMARY | 2025-07-13 19:28 | XMS_ITS | Patient Health Record ---
Author Organization [facility] Address [address] [place] [address] Care Team Providers Care Shell Freezing Machine Operator Name Role Phone Diane Tyler Unavailable Manolo Vega Unavailable [phone] Allergies No Known Allergies Results Component Value Reference Range Notes UA Without Micro-[place], [place] - [id number] Reviewed date:11/10/2024 01:29:14 PM Interpretation: Performing Lab: Notes/Report: Glucose 0 Bili 0 Ketones 0 Sp Nickerson 1.025 Blood 0 pH 6.0 Protein 0 Urobili 0 Nitrites 0 Leukocytes 0 UA Without Micro-Auto, [place] - [id number] Reviewed date:02/09/2025 02:31:20 PM Interpretation: Performing Lab: Notes/Report: Glucose 0 Bili 0 Ketones 0 Sp Nickerson 1.030 Blood 0 pH 6.0 Protein 1+ Urobili 0 Nitrites 0 Leukocytes 0 Reason For Referral Reason Recurrent UTI Diagnosis 1 Recurrent UTI (N39.0 ) Referred Organization [facility] Referred Provider Manolo Vega Referred Address [address],[place], [place],[address], Referred Provider Specialty Urology Referral Priority Routine Medications Medication SIG (Take, Route, Frequency, Duration) Notes Start Date End Date Status Azelastine HCl 137 MCG/SPRAY Solution 2 puffs (1 spray in each nostril) Nasally Twice a day Active Methotrexate Sodium 2.5 MG Tablet take FIVE tabs daily IN THE MORNING AND FIVE IN THE EVENING ON THE same DAY ONCE WEEKLY Oral; Duration: 28 Days Active Breztri Aerosphere 160-9-4.8 MCG/ACT Aerosol 2 puffs Inhalation Twice a day Active predniSONE 5 MG Tablet Oral; Duration: 30 Days Active Cetirizine HCl 10 MG Tablet Oral; Duration: 30 Days Active Botox 200 UNIT Solution Reconstituted as directed Injection Activ e Folic Acid 1 MG Tablet Oral; Duration: 90 Days Active traMADol HCl 50 MG Tablet 1 tablet as ne eded Orally Once a day Active Iron 28 MG Tablet 1 tablet Orally Thre e times a Week Active sulfaSALAzine 500 MG Tablet 1 tablet Ora lly Once a day Active Melatonin 5 MG Tablet 1 tablet in the ev ening Orally Once a day Active PriLOSEC 10 MG Packet 1 packet 1/2 to 1 hour before a meal mixed with 15 mL of water Orally Once a day Active Methenamine Hippurate 1 GM Tablet TAKE 1 TABLET (1,000 MG) BY MOUTH 2 TIMES DAILY. Oral; Duration: 30 Days Active Citalopram Hydrobromide 40 MG Tablet TAKE 1 TABLET BY MOUTH DAILY AT BEDTIME Oral; Duration: 90 Days Active Vitamin C 500 MG Capsule as directed Orally Active Elderberry 500 MG Capsule as directed Orally Active Vitamin D 50 MCG (2000 UT) Capsule 1 capsule Orally Once a day Active Estradiol 0.1 MG/GM Cream as directed Va ginal twice a week; Duration: 24 days 11/10/2024 Active Vitamin D3 125 MCG (5000 UT) Capsule 1 capsule Orally Once a day Active Flonase Allergy Relief 50 MCG/ACT Suspension 1 spray in each nostril Nasally Twice a day Active Vitamin B12 1000 MCG Tablet 1 tablet Ora lly Once a day Active Social History Tobacco Use: Social History Observation Description Date Details (start date - stop date) Never Smoker NA - NA Social History Tobacco Use: Social Info Question Answer Notes Tobacco Control (Standard) Tobacco use: Nonsmoker Section Notes: positive caffeine vonnie alcohol positive caffeine vonnie alcohol Problems Problem Type SNOMED Code ICD Code Onset Dates Problem Status W/U Status Risk Notes Problem Postprocedural states (410064148) History of bladder surgery (Z98.890) Active confirmed Problem Atrophy of vagina (231862211) Vaginal atrophy (N95.2) Active confirmed Problem Female cystocele (disorder) (278322403) History of cystocele (Z87.448) Active confirmed Vital Signs Heart Rate 96 /min 02/09/2025 Temperature 97.8 degrees Fahrenheit 02/09/2025 Blood pressure diastolic 89 mm Hg 02/09/2025 Weight-kg 112.22 kg 02/09/2025 Blood pressure systolic 120 mm Hg 02/09/2025 Weight 247.4 lbs 02/09/2025 Procedures Procedure Date Ordered Date Performed Result Body Sit e PVR (Post Void Residual) 02/09/2025 02/09/2025 N/A Encounters Encounter Location Date Provider Diagnosis [facility] [address] [place] [address] [place] [address], [place] [id number] 11/10/2024 Diane Tyler Recurrent UTI N39.0 ; History of cystocele Z87.448 and Vaginal atrophy N95.2 [facility] [address] [place]de [address] [place] [address], [place] [id number] 02/09/2025 Diane Tyler Recurrent UTI N39.0 ; Vaginal atrophy N95.2 and History of bladder surgery Z98.890 [facility] [address] Forde [address] [place] [address], [place] [id number] 11/06/2024 Manolo Vega Assessments Encounter Date Diagnosis (ICD Code) Assessment Notes Treatment Notes Treatment Clinical Notes Section Notes 02/09/2025 Vaginal atrophy (ICD-10 - N95.2) CONTINUE VAGINAL ESTROGEN AT LEAST TWICE A WEEK 02/09/2025 Recurrent UTI (ICD-10 - N39.0) CONTINUE METHENAMINE PATIENT WILL CONTACT OFFICE IF THEY ARE HAVING S/S OF UTI, CAN COME IN FOR [place] TO PROVIDE SAMPLE. Symptoms: Common symptoms include a strong, persistent urge to urinate, a burning sensation when urinating, cloudy or strong-smelling urine, and pelvic pain. 11/10/2024 Recurrent UTI (ICD-10 - N39.0) PATIENT WILL CONTACT OFFICE IF THEY ARE HAVING S/S OF UTI, CAN COME IN FOR NV TO PROVIDE SAMPLE. Symptoms: Common symptoms include a strong, persistent urge to urinate, a burning sensation when urinating, cloudy or strong-smelling urine, and pelvic pain. 11/10/2024 History of cystocele (ICD-10 - Z87.448) Patient advised that she had this and urethral sling during her hysterectomy 11/10/2024 Vaginal atrophy (ICD-10 - N95.2) Will start vaginal estrogen, to be used twice a week to help manage atrophy and try to prevent UTIs 02/09/2025 History of bladder surgery (ICD-10 - Z98.890) HISTORY OF BLADDER SLING SURGERY 02/09/2025 Other PATIENT WILL FOLLOW UP IN 6 MONTHS WITH UA AND PVR CONTINUE METHENAMINE TWICE A DAY CONTINUE WITH VAGINAL ESTROGEN Plan Of Treatment Next Appt Details Provider Name:Diane Hendricks, 08/13/2025 02:00:00 PM, [address], [place], [address], Insurance Providers Payer Name Payer Address Payer Phone Subscriber Number Group Number Insured Name Patient Relationship to Insured Coverage Start Date Coverage End Date Elsa [address] [place], [place] [phone] [id number] Paradise Martin Self - patient is the insured Medical (General) History Medical History History ICD Code orthscopic left kneee 2005 gallbladder removed 2014 knee replacement 2022 hysterectomy 2023 bladder sling 2023
[2025-07-14] VITALS (12 sets, daily range): BP systolic 126–169; BP diastolic 59–88; PULSE 98–125; RESP 16–20; TEMP 36.2–36.9; O2SAT 91–97
[2025-07-14] MEDS: ceFAZolin 2,000 mg SDV 2000 MG IVP ×2 (02:30→08:47)
[2025-07-14] MEDS: HYDROcodone-acetaminophen 5-325 mg Tablet PO ×4 (02:50→20:49)
[2025-07-14] MEDS: ferrous sulfate EC 325 mg Tablet PO ×2 (04:52→16:28)
[2025-07-14] MEDS: CITALOPRAM 40 MG TABLET PO (04:53)
--- NOTE | 2025-07-14 09:30 | P.PN_ITS ---
Subjective 2 Subjective: Patient is comfortable in bed she was up walked a little bit has pain in her back but overall feeling well has some right hip pain as well. Vitals/I&O/Wt Last Vital Signs Temp 98.0 F 07/14/25 07:24 Pulse 100 07/14/25 07:27 Resp 16 07/14/25 07:27 BP 143/82 07/14/25 07:24 Pulse Ox 97 07/14/25 07:27 O2 Del Method Nasal Cannula 07/14/25 07:27 O2 Flow Rate 2.5 07/14/25 07:27 07/13/25 07/14/25 07/14/25 22:59 06:59 14:59 Intake Total 1001.5 / 1001.5 879 / 1880.5 120 / 120 Output Total 1130 / 1130 800 / 1930 Balance -128.5 / -128.5 79 / -49.5 120 / 120 Weight last 48 hrs Weight 244 lb 5 oz Weight 244 lb 6.4 oz Weight 243 lb Physical Exam 2 Narrative: Patient is drain at 300 out overnight Alert oriented x 3 5 5 strength bilateral lower extremities sensation intact Data 07/13/25 10:10 A&P Assessment and plan 1. Status post lumbar spinal fusion: Postop day 1 T10 to pelvis fusion Up with physical therapy DC Hemovac drain Anticipate discharge planning tomorrow if does okay with therapy PDMP PDMP Reviewed: Not Reviewed Attestations 2 Medical Necessity Statement*: Pain control Coding Level of Care Code Acute Code for Chg Fwd Diagnoses Status post lumbar spinal fusion Z98.1
--- NOTE | 2025-07-14 16:32 | PC.NURSE ---
Hemovac drain removed from lower left back with no complications. Site was covered with a sterile 2x2 and tape. Pt tolerated well.
--- NOTE | 2025-07-14 22:28 | PM.MISC ---
Miscellaneous Note Purpose of Documentation: Orthopedic on-call provider note update: Orthopedic provider was contacted by patient's nurse stating she is having persistent tachycardia and heart rates in the 120s. As well as having urinary retention s/p deleon removal. At this point in time reviewed patient's chart she has had a multiple level lumbar fusion with Dr. Kumar. At this point in time would recommend a medical consultation for evaluation I spoke with Dr. Maravilla who is the overnight hospitalist provider and graciously agreed on consultation to see and evaluate the patient from medical standpoint. Fidel Vargas, DO Orthopedic surgery
--- NOTE | 2025-07-14 22:51 | ECG_ITS ---
[facility] Date: 2025-07[facility]14 Pat Name: Paradise Martin Department: Room: 269 Gender: Female Obstetrics Technician: : 1960 Requested By: Cresencio Bach Order Number: [id number] Aidan MD: Carla Collins M.D. Measurements Intervals [place] Rate: 111 P: 63 LA: 139 QRS: -8 QRSD: 78 T: 21 QT: 314 QTc: 428 Interpretive Statements SINUS TACHYCARDIA NONSPECIFIC T-WAVE ABNORMALITY ABNORMAL RHYTHM ECG No previous ECG available for comparison Electronically Signed On 07-15-2025 21:39:52 BUHR MILL OPERATOR by Carla Collins M.D. [email or web address] [email or web address]
[2025-07-14] MEDS: MELATONIN 3 MG TABLET PO (23:28)
--- NOTE | 2025-07-14 23:37 | PM.CONSULT ---
Providers/Reason For Consult Consulting Physician/Specialty*: Cresencio Maravilla MD hospitalist Reason for Consult*: Tachycardia Requesting Physician: Fidel Vargas DO Attending Physician: Sunny Kumar DO Primary Care Provider: ANICETO Dean History of Present Illness History of Present Illness Paradise Martin is a 64 year old female status post T10 to pelvis posterior fusion, bilateral open SI joint fusions and L2-3 laminectomy with facetectomy and allograft has been tachycardic with low urine output post Moy removal. Bladder scan is notable for 250 cc Patient denies chest pain shortness of breath nausea vomiting abdominal pain. She does have right hip and thigh discomfort as well as back pain. Patient denies history of [place] coronary artery disease or atrial fibrillation Medications/Allergies Home Medications ?Medication ?Instructions ?Recorded ?Confirmed ?Last Taken ?Type albuterol sulfate 90 mcg/actuation 2 puff inhalation QID PRN 06/23/23 07/09/25 01/12/24 History aerosol inhaler Shortness Of Breath fluticasone propionate 50 2 spray intranasal DAILY PRN 06/25/23 07/09/25 Unknown History mcg/actuation nasal Allergy Symptoms spray,suspension (Flonase Allergy Relief) melatonin 3 mg capsule 3 mg PO BEDTIME PRN Sleep 06/25/23 07/09/25 01/20/24 History omeprazole magnesium 20 mg 20 mg PO DAILY 06/25/23 07/09/25 07/12/25 History tablet,delayed release (Prilosec OTC) vitamins A,C,K-frzx-nymsmn 4,296 1 cap PO BID 06/25/23 07/09/25 07/09/25 History mcg-226 mg-90 mg capsule (ICaps AREDS) cholecalciferol (vitamin D3) 25 25 mcg PO BEDTIME 09/24/23 07/09/25 07/09/25 History mcg (1,000 unit) tablet (Vitamin D3) cyanocobalamin (vitamin B-12) 1,000 mcg PO QAM 09/24/23 07/09/25 07/12/25 History 1,000 mcg tablet (Vitamin B-12) ferrous sulfate 325 mg (65 mg 325 mg PO BID #30 tabs 01/30/24 07/09/25 07/12/25 Rx iron) tablet (Iron (ferrous sulfate)) estradiol 0.01% (0.1 mg/gram) 1 appful vaginal .COMPLEX 12/05/24 07/09/25 07/09/25 History vaginal cream azelastine 137 mcg (0.1 %) nasal 2 spray intranasal BID PRN unknown 04/17/25 07/13/25 07/11/25 Rx spray #30 mL budesonide 160 mcg-glycopyr 9 2 inh inhalation BID #10.7 grams 04/17/25 07/09/25 07/12/25 Rx mcg-formot 4.8 mcg/actuation HFA inhaler (Breztri Aerosphere) folic acid 1 mg tablet 1 mg PO DAILY #90 tabs 06/08/25 07/09/25 07/12/25 Rx prednisone 5 mg tablet 5 mg PO QDAY #90 tabs 06/08/25 07/09/25 07/12/25 Rx sulfasalazine 500 mg tablet 0.5 g PO BID #180 tabs 06/08/25 07/09/25 07/12/25 Rx tramadol 50 mg tablet 50 mg PO TID PRN take for moderate 06/08/25 07/09/25 07/12/25 Rx to severe pain PRN #90 tabs pilocarpine HCl 5 mg tablet 5 mg PO TID #90 tabs 06/09/25 07/09/25 07/12/25 Rx methenamine hippurate 1 gram tablet 1 g PO DAILY 07/09/25 07/13/25 07/12/25 History methotrexate 2.5 mg/mL oral 2.5 mg PO DIRECTED 07/09/25 07/09/25 07/04/25 History solution Soft Cervical collar #1 ea 07/13/25 Unknown Rx cetirizine 10 mg tablet 10 mg PO DAILY 07/13/25 07/13/25 07/12/25 History citalopram 40 mg tablet 40 mg PO DAILY 07/13/25 07/13/25 07/12/25 History methotrexate sodium 2.5 mg tablet 25 mg PO .FRIDAYS Rheumatoid 07/13/25 07/13/25 07/10/25 History Arthritis Bone Growth Stimulator #1 ea 07/14/25 Unknown Rx Allergies Allergy/AdvReac Type Severity Reaction Status Date / Time No Known Allergies Allergy Verified 07/09/25 12:46 Current Medications Generic Name Dose Route Start Last Admin Trade Name Freq PRN Reason Stop Dose Admin Hydrocodone Bitart/Acetaminophen 1 - 2 tab 07/13/25 15:15 07/14/25 20:49 Hydrocodone-Acetaminophen 5-325 Mg Tablet PO 2 tab Q4H PRN Administration MODERATE TO SEVERE PAIN Albuterol/Ipratropium 3 ml 07/13/25 16:00 07/14/25 19:50 Ipratropium-Albuterol 3 Ml Neb INHALATION 3 ml QID.RESPIRATORY ROSA M Administration Budesonide 0.5 mg 07/13/25 20:00 07/14/25 19:50 Budesonide 0.5 Mg/2 Ml Neb INHALATION 0.5 mg BID.RESPIRATORY ROS AM Administration Cetirizine HCl 10 mg 07/14/25 05:00 07/14/25 04:53 Cetirizine 10 Mg Tablet PO 10 mg DAILY ROSA M Administration Citalopram Hydrobromide 40 mg 07/14/25 05:00 07/14/25 04:53 Citalopram 40 Mg Tablet PO 40 mg DAILY ROSA M Administration Cyanocobalamin 1,000 mcg 07/14/25 05:00 07/14/25 04:53 Cyanocobalamin 1,000 Mcg Tablet PO 1,000 mcg QAM ROSA M Administration Docusate Sodium 100 mg 07/13/25 17:00 07/14/25 16:28 Docusate Sodium 100 Mg Capsule PO 100 mg BID ROSA M Administration Ferrous Sulfate 325 mg 07/13/25 17:00 07/14/25 16:28 Ferrous Sulfate Ec 325 Mg Tablet PO 325 mg BID ROSA M Administration Folic Acid 1 mg 07/14/25 05:00 07/14/25 04:53 Folic Acid 1 Mg Tablet PO 1 mg DAILY ROSA M Administration Ketorolac Tromethamine 30 mg 07/13/25 15:15 07/14/25 04:57 Ketorolac 30 Mg/Ml Inj IVP 30 mg Q6H PRN Administration BREAKTHROUGH PAIN Melatonin 3 mg 07/13/25 15:16 07/14/25 23:28 Melatonin 3 Mg Tablet PO 3 mg BEDTIME PRN Administration Sleep Ondansetron HCl 4 mg 07/13/25 15:15 07/13/25 18:32 Ondansetron 2 Mg/Ml Sdv 2 Ml IVP 4 mg Q6H PRN Administration NAUSEA AND VOMITING Pantoprazole Sodium 40 mg 07/14/25 05:00 07/14/25 04:[address] 40 Mg Tablet PO 40 mg DAILY ROSA M Administration Prednisone 5 mg 07/13/25 15:30 07/14/25 04:53 Prednisone 5 Mg Tablet PO 5 mg DAILY ROSA M Administration Sulfasalazine 500 mg 07/13/25 17:00 07/14/25 16:28 Sulfasalazine 500 Mg Tablet PO 500 mg BID ROSA M Administration Vitamin D 1,000 unit 07/13/25 21:00 07/14/25 20:45 Cholecalciferol (Vitamin D3) 1,000 Unit Tablet PO 1,000 unit BEDTIME ROSA M Administration PFSH Acute PFSH: Medical History (Updated 07/14/25 @ 23:41 by Cresencio Maravilla MD) Immunization counseling High risk medication use Inflammatory arthritis Positive HAILEY (antinuclear antibody) Surgical History (Updated 07/14/25 @ 09:31 by Sunny Kumar DO) History of total vaginal hysterectomy (~01/29/24) with right salpingo-oophorectomy, anterior colporrhaphy augmented with allograft, mid urethral sling, cystoscopy performed by Dr. Gregg at [facility] for PP, uterine prolapse, cystocele, rectocele, mixed urinary incontinence. Negative pathology. History of knee replacement procedure of left knee December 2022 History of cholecystectomy Family History Sister Cancer lung Grandmother Cancer maternal - colon Heart disease maternal and paternal both from heart attack. Family/Other Cancer materanal aunts- brain and luekemia Stroke materanal uncle Father Chronic kidney disease (CKD) Heart disease Mother Heart disease Family history of Sjogren's disease Brother Heart disease Denies family history of Diabetes Thyroid disease Social History Smoking and tobacco/nicotine status: never used tobacco/nicotine Alcohol intake: never Substance/Drug Use: never Female Reproductive History: Para: 3 Spontaneous abortions: Yes Vitals/I&O/Wt Last Vital Signs Temp 98.3 F 07/14/25 23:15 Pulse 119 H 07/14/25 23:15 Resp 17 07/14/25 23:15 BP 126/77 07/14/25 23:15 Pulse Ox 91 07/14/25 22:07 O2 Del Method Room Air 07/14/25 23:15 O2 Flow Rate 1 07/14/25 22:07 07/14/25 07/14/25 07/15/25 14:59 22:59 06:59 Intake Total 939 / 939 240 / 1179 Output Total 240 / 240 125 / 365 Balance 699 / 699 115 / 814 Weight last 48 hrs Weight 110.818 kg Weight 110.858 kg Weight 110.223 kg Physical Exam Narrative: General well-developed well-nourished obese female in no acute cardiopulmonary stress CV regular tachycardic rate and rhythm Lungs clear to auscultation Abdomen positive bowel tones soft nontender Calves no tenderness cords pretrip edema radial pulses 1+ dorsal pedal pulses 1+ Data 07/14/25 23:43 07/14/25 23:43 A&P Assessment and plan 1. Sinus tachycardia by electrocardiogram: EKG shows sinus tachycardia. Patient will be given 1 L NS. I have also ordered CBC mini panel magnesium and phosphorus and will replace electrolytes as needed. 2. Low urine output: Hold off on bladder scan for now. Fluid bolus 1 L and monitor for urine output. Consider straight cath PDMP PDMP Reviewed: Not Reviewed Consult Attestations Medical Necessity Statement: Patient is recovering from low back fusion and will require greater than 2 midnights in hospital Coding Level of Care Code Acute Code for Chg Fwd Diagnoses Sinus tachycardia by electrocardiogram R00.0 Low urine output R34 Time Spent (min) 40 Comment [id number]
[2025-07-14 23:50] LABS: Hematocrit 28.2 % (36-47); Hemoglobin 8.80 g/dL (11.27-16.99); Mean Corpuscular HGB Conc 31.2 g/dL (30-55); Mean Corpuscular Hemoglobin 29.8 pg (27-33); Mean Corpuscular Volume 95.6 fl (85-98); Nucleated Red Blood Cells % 0 %; Platelet Count 183 10^3/cmm (157-399); Red Blood Count 2.95 10^6/uL (3.85-5.65); White Blood Count 13.81 10^3/uL (3.29-11.43)
[2025-07-15] VITALS (10 sets, daily range): BP systolic 96–132; BP diastolic 56–78; PULSE 65–90; RESP 16–18; TEMP 36.7–36.9; O2SAT 86–97
[2025-07-15 00:16] LABS: Blood Urea Nitrogen 15 mg/dL (8-23); Calcium 8.6 mg/dL (8.5-10.5); Carbon Dioxide 28 mmol/L (22-29); Chloride 100 mmol/L (98-107); Glucose 126 mg/dL (65-115); Magnesium 1.8 mg/dL (1.7-2.3); Osmolality Calculated 286 mOsm/kg (285-295); Sodium 137 mmol/L (136-145)
[2025-07-15 00:40] LABS: Anion Gap 13.0 (5-19); Potassium 4.0 mmol/L (3.5-5.1)
[2025-07-15] MEDS: HYDROcodone-acetaminophen 5-325 mg Tablet PO (01:57)
--- NOTE | 2025-07-15 03:24 | PC.NURSE ---
2100 07/14/[address] Vargas (on-call) that pt sustaining HR 120s. Order for hospital consult placed per MD. 2199 Night hospitalist assessed pt at bedside. MD aware that pt was unabl to urinate and bladder scan showed 250ml. 0200 07/15/2025 MD was notified that pt had runs of v-tach, and the ECG was sent. New orders received.
[2025-07-15] MEDS: CITALOPRAM 40 MG TABLET PO (04:30)
[2025-07-15] MEDS: ferrous sulfate EC 325 mg Tablet PO ×2 (04:34→17:09)
--- NOTE | 2025-07-15 07:55 | P.PN_ITS ---
Subjective 2 Subjective: Patient is a very pleasant 64-year-old female seen and examined for hospitalist consultation this morning. Patient sitting up in bed stating that her pain is well-controlled, denies new or worsening symptoms. Patient has chronic urinary retention which she sees urology outpatient for. Postvoid residual this morning was less than 200 cc. Patient did have a big drop in her hemoglobin from 12.10- 8.60 this morning. Patient denies current syncope or shortness of breath however when walking with physical therapy today patient oxygen saturation dropped to 87%. Pending home oxygen evaluation. WBC 16.91, hemoglobin 8.60, BUN 14, creatinine 0.7, stable electrolytes and LFTs. Patient is afebrile. WBC elevation could be reaction to surgery. Hospitalist team is grateful to be able to consult in the medical management of this patient, we are available for further concerns. Vitals/I&O/Wt Last Vital Signs Temp 98.3 F 07/15/25 07:31 Pulse 82 07/15/25 07:31 Resp 17 07/15/25 07:31 BP 99/56 07/15/25 07:31 Pulse Ox 97 07/15/25 07:31 O2 Del Method Nasal Cannula 07/15/25 07:31 O2 Flow Rate 1 07/14/25 22:07 07/14/25 07/15/25 07/15/25 22:59 06:59 14:59 Intake Total 240 / 1179 1000 / 2179 Output Total 125 / 365 500 / 865 Balance 115 / 814 500 / 1314 Weight last 48 hrs Weight 110.393 kg Weight 110.818 kg Weight 110.858 kg Weight 110.223 kg Physical Exam 2 Narrative: General well-developed well-nourished obese female in no acute cardiopulmonary stress CV regular rate and rhythm Lungs clear to auscultation Abdomen positive bowel tones soft nontender Calves no tenderness cords pretrip edema radial pulses 1+ dorsal pedal pulses 1+ Data 07/15/25 12:24 07/15/25 12:24 A&P Assessment and plan 1. Sinus tachycardia by electrocardiogram: - Controlled after administration of IV fluids. - Continue monitoring 2. Low urine output: - Resolved, urine output increased. Post void residual with less than 200cc. Known issue of urinary retention. 3. Mixed incontinence: - Pending urinalysis - Follow with urology outpatient, f/u next month 4. Anemia: - Hgb 12.10--<8.80--<8.60 - Continue ferrous sulfate 325mg PO BID, adding ascorbic acid 500mg Daily - Monitor and transfuse for Hgb less than 7.0 5. Hypoxia: - Post surgical hypoxia - Oxygen saturation 87% during PT evaluation - Oxygen walk test pending PDMP PDMP Reviewed: Not Reviewed Attestations 2 Medical Necessity Statement*: Per Attending Coding Level of Care Code 36198 Diagnoses Sinus tachycardia by electrocardiogram R00.0 Low urine output R34 Mixed incontinence N39.46 Anemia D64.9 Hypoxia R09.02
[2025-07-15 12:31] LABS: Hematocrit 27.8 % (36-47); Hemoglobin 8.60 g/dL (11.27-16.99); Mean Corpuscular HGB Conc 30.9 g/dL (30-55); Mean Corpuscular Hemoglobin 29.5 pg (27-33); Mean Corpuscular Volume 95.2 fl (85-98); Nucleated Red Blood Cells % 0 %; Platelet Count 218 10^3/cmm (157-399); Red Blood Count 2.92 10^6/uL (3.85-5.65); White Blood Count 16.91 10^3/uL (3.29-11.43)
[2025-07-15 12:56] LABS: Alanine Aminotransferase 17 U/L (0-33); Albumin Level 3.5 g/dL (3.5-5.2); Alkaline Phosphatase 57 U/L (35-105); Anion Gap 12.4 (5-19); Aspartate Amino Transferase 28 U/L (0-32); Blood Urea Nitrogen 14 mg/dL (8-23); Calcium 9.2 mg/dL (8.5-10.5); Carbon Dioxide 30 mmol/L (22-29); Chloride 100 mmol/L (98-107); Globulin 2.2 g/dL (1.3-4.6); Glucose 113 mg/dL (65-115); Magnesium 1.9 mg/dL (1.7-2.3); Osmolality Calculated 287 mOsm/kg (285-295); Potassium 4.4 mmol/L (3.5-5.1); Sodium 138 mmol/L (136-145); Total Protein 5.7 g/dL (6.6-8.7)
[2025-07-15 14:43] LABS: ABG PCO2 45.4 mmHg (35-45); ABG PH Result 7.41 (7.35-7.45); Arterial Blood Gas Hematocrit 25.0 % (37-47); Blood Gas Allen Test Pos; Blood Gas LPM 2.0 %; Blood Gas Operator Identificat WALCI; Blood Gas Sample Site Radial, left; Blood Gas Sample Type Arterial; HCO3 ABG 29.0 mmol/L (22-26); PO2 ABG 87.0 mmHg (80.0-100.0)
--- NOTE | 2025-07-15 16:34 | P.DS_ITS ---
Discharge Providers Date of Admission: 07/13/25 15:13 Date of Discharge: July 15, 2025 Attending Provider at Admission: Sunny Kumar DO Attending Provider at Discharge: Sunny Kumar DO Primary Care Provider: ANICETO Dean Diagnoses at Discharge Discharge Diagnosis 1. Sinus tachycardia by electrocardiogram: 2. Low urine output: 3. Mixed incontinence: 4. Anemia: 5. Hypoxia: Reason for Visit Reason for Visit: M43.16 Physical Exam Narrative: Patient resting bed comfortably. She is up walking 60 feet. Would like to go home. Looks like hospitalist saw her and got her home oxygen. Discharge Data Studies Completed and Pending Completed Studies During Hospitalization Category Date Time Status XR lumbar spine 2-3V* 72332 Routine Exams 07/13/25 15:50 Completed Pending at discharge Category Date Time Status CBC Auto Diff [Complete Blood Count w/Auto] AM LABS Lab 07/16/25 12:10 Ordered Comprehensive Metabolic Panel AM LABS Lab 07/16/25 12:15 Ordered Magnesium AM LABS Lab 07/16/25 12:15 Ordered Urinalysis Routine Lab 07/15/25 14:15 Uncollected Radiology Impressions Lumbar Spine X-Ray 07/13/25 15:50 IMPRESSION: Images obtained for intraoperative purposes. Laboratory Results WBC 16.91 10^3/uL (3.29-11.43) H 07/15/25 12:24 RBC 2.92 10^6/uL (3.85-5.65) L 07/15/25 12:24 Hgb 8.60 g/dL (11.27-16.99) L 07/15/25 12:24 Hct 27.8 % (36-47) L 07/15/25 12:24 MCV 95.2 fl (85-98) 07/15/25 12:24 MCH 29.5 pg (27-33) 07/15/25 12:24 MCHC 30.9 g/dL (30-55) 07/15/25 12:24 RDW 16.6 % (12.1-15.1) H 07/15/25 12:24 Plt Count 218 10^3/cmm (157-399) 07/15/25 12:24 MPV 10.5 fL (7.4-10.4) H 07/15/25 12:24 Neut % (Auto) 86.4 % 07/15/25 12:24 Lymph % (Auto) 6.3 % 07/15/25 12:24 Mclean % (Auto) 6.3 % 07/15/25 12:24 Eos % (Auto) 0.1 % 07/15/25 12:24 Baso % (Auto) 0.1 % 07/15/25 12:24 Neut # (Auto) 14.62 10^3/uL (1.8-7.7) H 07/15/25 12:24 Lymph # (Auto) 1.1 10^3/uL (0.8-4.8) 07/15/25 12:24 Mclean # (Auto) 1.1 10^3/uL (0.2-0.9) H 07/15/25 12:24 Eos # (Auto) 0.0 10^3/uL (0.0-0.8) 07/15/25 12:24 Baso # (Auto) 0.0 10^3/uL (0.0-0.1) 07/15/25 12:24 Nucleated RBC % (auto) 0 % 07/15/25 12: Nucleated RBCs # 0.0 /100WBC 07/15/25 12:24 Specimen Type Arterial 07/15/25 14:30 Sample Site Radial, left 07/15/25 14:30 ABG pH 7.41 (7.35-7.45) 07/15/25 14:30 ABG pCO2 45.4 mmHg (35-45) H 07/15/25 14:30 ABG pO2 87.0 mmHg (80.0-100.0) 07/15/25 14:30 ABG HCO3 29.0 mmol/L (22-26) H 07/15/25 14:30 ABG Base Excess 3.9 mmol/L (-2.0-2.0) H 07/15/25 14:30 Manav Test Pos 07/15/25 14:30 Hematocrit 25.0 % (37-47) L 07/15/25 14:30 O2 Delivery Device Nc 07/15/25 14:30 O2 Liters/Min 2.0 % 07/15/25 14:30 Domestic Travel Consultant ID [employer] 07/15/25 14:30 Sodium 138 mmol/L (136-145) 07/15/25 12:24 Potassium 4.4 mmol/L (3.5-5.1) 07/15/25 12:24 Chloride 100 mmol/L (98-107) 07/15/25 12:24 Carbon Dioxide 30 mmol/L (22-29) H 07/15/25 12:24 Anion Gap 12.4 (5-19) 07/15/25 12:24 BUN 14 mg/dL (8-23) 07/15/25 12:24 Creatinine 0.7 mg/dL (0.5-0.9) 07/15/25 12:24 GFR Calculation 84.2 mL/min (90-130) L 07/15/25 12:24 Glucose 113 mg/dL (65-115) 07/15/25 12:24 Calculated Osmolality 287 mOsm/kg (285-295) 07/15/25 12:24 Calcium 9.2 mg/dL (8.5-10.5) 07/15/25 12:24 Phosphorus 2.6 mg/dL (2.5-4.5) 07/14/25 23:43 Magnesium 1.9 mg/dL (1.7-2.3) 07/15/25 12:24 Total Bilirubin 0.3 mg/dL (0.15-1.2) 07/15/25 12:24 AST 28 U/L (0-32) 07/15/25 12:24 ALT 17 U/L (0-33) 07/15/25 12:24 Alkaline Phosphatase 57 U/L (35-105) 07/15/25 12:24 Total Protein 5.7 g/dL (6.6-8.7) L 07/15/25 12:24 Albumin 3.5 g/dL (3.5-5.2) 07/15/25 12:24 Globulin 2.2 g/dL (1.3-4.6) 07/15/25 12:24 Urine Color Dark yellow (Yellow) A 07/13/25 09:58 Urine Appearance Cloudy (CLEAR) A 07/13/25 09:58 Urine pH 5.5 (5-7) 07/13/25 09:58 Ur Specific Louisa 1.023 (1.005-1.030) 07/13/25 09:58 Urine Protein 1+ (Negative) A 07/13/25 09:58 Urine Glucose (UA) Negative (Normal) 07/13/25 09:58 Urine Ketones Trace (Negative) 07/13/25 09:58 Urine Blood Negative (Negative) 07/13/25 09:58 Urine Nitrate Negative (Negative) 07/13/25 09:58 Urine Bilirubin Negative (Negative) 07/13/25 09:58 Urine Urobilinogen 0.2 mg/dL (Negative) 07/13/25 09:58 Ur Leukocyte Esterase Negative (Negative) 07/13/25 09:58 Urine WBC 0-5 /hpf (0-5) 07/13/25 09:58 Amorphous Sediment Not Reportable 07/13/25 09:58 Hyaline Casts 3-5 /lpf 07/13/25 09:58 Urine Mucus 1+ /hpf 07/13/25 09:58 Blood Type B Negative 07/13/25 10:10 Rho(D) Type Rh negative 07/13/25 10:10 Antibody Screen Negative 07/13/25 10:10 Vitals Last Vital Signs Temp 98.1 F 07/15/25 16:10 Pulse 85 07/15/25 16:10 Resp 16 07/15/25 16:10 BP 113/60 07/15/25 16:10 Pulse Ox 97 07/15/25 16:10 O2 Del Method Nasal Cannula 07/15/25 16:10 O2 Flow Rate 2 07/15/25 13:30 Discharge Plan Discharge Patient Disposition: Home Condition: Stable Prescriptions: New hydrocodone-acetaminophen 5-325 mg tablet 1 tab PO Q4H PRN (Reason: pain) 7 Days Qty: 42 0RF Continued albuterol sulfate 90 mcg/actuation HFA aerosol inhaler 2 puff inhalation QID PRN (Reason: Shortness Of Breath) estradiol 0.01 % (0.1 mg/gram) cream 1 appful vaginal .COMPLEX Rx Instructions: 1 appful vaginally twice a week; for 14 days folic acid 1 mg tablet 1 mg PO DAILY Qty: 90 1RF prednisone 5 mg tablet 5 mg PO QDAY Qty: 90 1RF sulfasalazine 500 mg tablet 0.5 g PO BID Qty: 180 1RF azelastine 137 mcg (0.1 %) spray,non-aerosol 2 spray intranasal BID PRN (Reason: unknown) Qty: 30 5RF Rx Instructions: administer into each nostril Breztri Aerosphere 160-9-4.8 mcg/actuation HFA aerosol inhaler 2 inh inhalation BID Qty: 10.7 3RF fluticasone propionate [Flonase Allergy Relief] 50 mcg/actuation spray,suspension 2 spray intranasal DAILY PRN (Reason: Allergy Symptoms) Rx Instructions: administer into each nostril omeprazole magnesium [Prilosec OTC] 20 mg tablet,delayed release (DR/EC) 20 mg PO DAILY ICaps AREDS 4,296 mcg-226 mg-90 mg capsule 1 cap PO BID melatonin 3 mg capsule 3 mg PO BEDTIME PRN (Reason: Sleep) pilocarpine HCl 5 mg tablet 5 mg PO TID Qty: 90 3RF (DME) Bone Growth Stimulator See Rx Instructions .Route .MEDSUPPLY Qty: 1 0RF Rx Instructions: As directed ferrous sulfate [Iron (ferrous sulfate)] 325 mg (65 mg iron) tablet 325 mg PO BID Qty: 30 0RF methenamine hippurate 1 gram tablet 1 g PO DAILY citalopram 40 mg tablet 40 mg PO DAILY Rx Instructions: TAKE 1 TABLET BY MOUTH DAILY AT BEDTIME cetirizine 10 mg tablet 10 mg PO DAILY Rx Instructions: TAKE ONE TABLET DAILY AT BEDTIME cyanocobalamin (vitamin B-12) [Vitamin B-12] 1,000 mcg Tablet 1,000 mcg PO QAM cholecalciferol (vitamin D3) [Vitamin D3] 25 mcg (1,000 unit) Tablet 25 mcg PO BEDTIME Held methotrexate 2.5 mg/mL Solution 2.5 mg PO DIRECTED Hold Instructions: Resume on 07/29/25. Rx Instructions: take 5 tabs on sunday night. take 5 tabs on sunday morning methotrexate sodium 2.5 mg tablet 25 mg PO .FRIDAYS Hold Instructions: Resume on 07/29/25. Rx Instructions: Split dose.. take 10 tabs on the same day once a week, take 5 tabs in the AM and 5 tabs in the PM Discontinued tramadol 50 mg tablet 50 mg PO TID PRN (Reason: take for moderate to severe pain PRN) Qty: 90 1RF (DME) Soft Cervical collar See Rx Instructions .Route .MEDSUPPLY Qty: 1 0RF Rx Instructions: As directed Hydro Excavation Operator OK for DC: Hospitalist Discharge Order = DC NOW: Discharge Order (Routine); Ordered 07/15/25 Ordered By: Sunny Kumar Other Ambulatory Orders: DME: Oxygen (Order) Location: None Selected Ordered By: Elsi Colon Referrals: Sunny Kumar DO [Physician, Orthopedics] - 07/28/25 8:30 am Discharge Diet: Advance as tolerated Discharge Activity: Limit activity as instructed Patient Instructions: Acute Wound Care (DC), Opioid Safety, Post Anesthesia Care, Patient Portal & Cat Instructions Activity Restrictions/Additional Instructions: Thank you for choosing [facility] for your care! The following is a list of instructions, from your provider, to follow upon your discharge to ensure you have the optimal recovery from your recent injury or surgery. Follow-up care is a gamboa part of your treatment and safety. Be sure to make and go to all appointments, and call your doctor if you are having problems. If you do not already have a follow-up appointment made, call []'s office in the next 1-3 days to make follow up appointment for [] weeks at [phone]. It is also a good idea to know your test results and keep a list of the medicines you take. Medications will be prescribed for you at your provider?s discretion. These medications are to be used as instructed;if they are taken more often that prescribed they will not be refilled early and in most cases will not be refi lled at all. > When a refill is needed,you should contact our office 2-3 business days beforeyour prescription runs out. Medications will NOTbe refilled by tour consultant providers after hours! > Many pain medications contain Tylenol (Acetaminophen). Do not consume more than 4,000 mg of Tylenol per day in total with any combination of medications. > Pain medications can cause constipation. Please use an over the counter stool softener as directed, while taking pain medications. Consult your local pharmacist with questions or recommendations on stool softeners. If co nstipation persists, contact our office or your primary care provider. > While under our care,you are not to receive pain medications or other controlled substances from any other provider unless our office is notified and approves. Any attempts to do so will result in refusal to prescribe any further pain medications and possible dismissal from our practice. ? Follow-up in clinic in 1 week. Keep the dressing on will change in the clinic in 1 week. ? Showering is permitted, however we ask that you do not take a bath, sit in a whirlpool / Jacuzzi, or go swimming for 1 month. For only the first 2 days after surgery, lt wilt be necessary for you to cover your wound/dressing with plastic and tape to keep it dry. ? Walking is essential for the healing process after surgery. We would like you to slowly advance your walking. This should be done on relatively flat clear ground (inside or out) or can be done on a treadmill. Remember this goal does not have to happen all at once, slowly increase your distance and duration. This can be broken into more more than one walk per day as tolerated. Patients who walk as directed after surgery rarely require Physical Therapy. In the unlikely event this issue arises your provider will direct hospital staff to make the appropriate arrangements. ? No lifting over 5 pounds {a gallon of milk) or bending/twisting until fur ther notice. Each of these activities places an unnecessary amount of stress onto the body and can impede the delicate healing process. > Instead of bending at the waist, keep your back straight and bend at the knees. > Instead of twisting your torso, keep your back straight and turn your entire body with your feet. ? You may sleep in any position which makes you comfortable.Many patients find comfort sleeping in a reclining chair. It is not abnormal to have difficulty sleeping for the first several weeks following your surgery. We recommend trying Benadryl or Tylenol PM as directed to help with your sleeping difficulties. Both medications are over the counter and available without prescription. ? NO SMOKING!!!Smoking dramatically increases the probability of developing postoperative wound infections. ? Common complaints after lumbar and/or thoracic spine surgery include, but are not limited to: numbness and/or tingling in the legs, pain around the incision and surrounding tissues, muscle spasms, or stiffness of the middle to low back. Contact our office if these symptoms persist or if an acute change occurs. ? No driving for the first 3-5 days, and not while taking narcotics until seen at your follow-up appointment and cleared.There are no restrictions for riding on short trips, however if you take a longer trip, arrangements should be made to make regular stops to get out of the vehicle and stretch . ? Swelling is an unfortunate event that will take place with any surgery and is the primary source of your postoperative discomfort. While walking and regular approved activities helps control inflammation, there are additional steps you can take to minimize swelling. > Place ice over the surgical site and surrounding tissue for twenty minutes, followed by applying a low/medium heat (heating pad) for an additional twenty minutes every 1-2 hours as needed for pain relief. > You may use of over the counter anti-inflammatory medications (Ibu profen, Motrin, Aleve, Advil, etc) as directed on the package label. These types of medicines will significantly reduce the amount of discomfort you experience after surgery from swelling. It should be noted that if you have an allergy to any of these medications, or a history of ulcers or kidney disease you should consult your primary care provider prior to starting these medications. Discharge Attestations Time Spent in Discharge Care*: less than 30 min Quality Metrics Clinical Quality Measures [ No reported AMI, CVA or VTE this stay] Coding Level of Care Code Acute Code for Chg Fwd Diagnoses Sinus tachycardia by electrocardiogram R00.0 Low urine output R34 Mixed incontinence N39.46 Anemia D64.9 Hypoxia R09.02
--- NOTE | 2025-07-15 19:16 | PC.NURSE ---
Discussed discharge with patient. Went over medications. Notified Elsi and patient was not to keep taking metoprolol. Patient verbalized understanding. Discussed follow up appointments, signs and symptoms of infection, when to call physician or come to the ER and discussed restriction in discharge. Patient verbalized understanding. Oxygen delivered and medications brought to bedside. Patient wheeled out in wheel chair.
== END 2025-07-15 18:43 | disposition home or self-care (01) | DRG 457 ==
LOC: MEDSURG 16:59
PROVIDERS: Internal Medicine; Registered Nurse; Student in an Organized Health Care Education/Training Program; Admitting Provider Orthopaedic Surgery; PCP Nurse Practitioner; Visit Provider Orthopaedic Surgery
PROC: 0RG70K1 Fusion of 2 to 7 Thoracic Vertebral Joints with Nonautologous Tissue Substitute, Posterior Approach, Posterior Column, Open Approach (ICD-10-PCS; principal; 2025-07-13 11:00)
PROC: 0RG70K1 Fusion of 2 to 7 Thoracic Vertebral Joints with Nonautologous Tissue Substitute, Posterior Approach, Posterior Column, Open Approach (ICD-10-PCS; 2025-07-13 11:00)
PROC: 0RG70K1 Fusion of 2 to 7 Thoracic Vertebral Joints with Nonautologous Tissue Substitute, Posterior Approach, Posterior Column, Open Approach (ICD-10-PCS; CPT 27280; 2025-07-13 11:00)
PROC: 0RG70K1 Fusion of 2 to 7 Thoracic Vertebral Joints with Nonautologous Tissue Substitute, Posterior Approach, Posterior Column, Open Approach (ICD-10-PCS; 2025-07-13 11:00)
PROC: 0RG70K1 Fusion of 2 to 7 Thoracic Vertebral Joints with Nonautologous Tissue Substitute, Posterior Approach, Posterior Column, Open Approach (ICD-10-PCS; CPT 63005; 2025-07-13 11:00)
DX: M48.062 Spinal stenosis, lumbar region with neurogenic claudication (principal); Z68.41 Body mass index [BMI] 40.0-44.9, adult; M41.56 Other secondary scoliosis, lumbar region; K21.9 Gastro-esophageal reflux disease without esophagitis; M19.90 Unspecified osteoarthritis, unspecified site; R00.0 Tachycardia, unspecified; R33.9 Retention of urine, unspecified; E66.9 Obesity, unspecified; R09.02 Hypoxemia; N39.46 Mixed incontinence; D64.9 Anemia, unspecified; Z79.51 Long term (current) use of inhaled steroids
CPT/HCPCS: 36415; 36600; 51702; 51798; 72100; 76000; 80048; 80053; 81003; 82803; 83735; 84100; 85025; 86850; 86900; 93005; 94640; 94760; 97116; 97161; 97530; A4649; C1713; C1734; J0690; J1644; J1885; J2250; J2405; J2704; J2710; J3010; J3260; J3373; J3490; J7030; J7120; J7512; J7626; J9999; L8699